=== PATIENT | female | born 1950 | race Caucasian/White ===

== ENCOUNTER 2017-05-14 20:23 | Emergency (ER) | payer MEDICARE, SELFPAY ==
[2017-05-14 20:37] VITALS: BP 106/67; PULSE 129; RESP 22; TEMP 37.4; O2SAT 97
[2017-05-14 20:39] VITALS: BP 106/67; PULSE 129; RESP 22; TEMP 37.4; O2SAT 97; BMI 41.8
[2017-05-14 20:49] LABS: UTC Influenza A Antigen Positive (Negative); UTC Influenza B Antigen Negative (Negative)
--- NOTE | 2017-05-14 21:45 | HMH.EDUTC ---
[facility] [place] [facility] Disposition Clinical Impression: Influenza A Disposition: Home, Self-Care Condition on Discharge: Good Instructions: DI for Influenza -- Adult Additional Instructions: * Start Tamiflu today if you are going to take it. Discussed risks and possible benefits. * Lots of rest * Increase fluids, water, gatorade, powerade, pedialyte if /toddler/child * Monitor Temp. Tylenol every 4 hours as needed no more then 5 times a day or 4000mg in 24 hours and/or ibuprofen every 6 hours as needed no more then 3200mg in 24 hours (as long as your primary care doctor has told you that it is ok to take both) for fever/aches/pain. ER if fever no less than 101 despite tylenol and Ibuprofen * OTC cold/flu/sinus medication is ok but pick one. Do not take multiple different ones as they have similar ingredients and you can overdose on cold medication. With yiour HTN, stick with Coricidin HbP products. * You (or your child) are contagious until no fever, aches, chills x 24 hours without medication for symptoms. Follow up IMMEDIATELY for new or worsening symptoms, improvement followed by suddenly feeling worse OR no noticeable improvement over the next 48-72 hours. 911 for difficulty breathing Prescriptions: Oseltamivir Phosphate [Tamiflu 75mg Capsule] 75 mg PO BID #10 cap Referrals: Tej Cowan MD [Primary Care Provider] - (IMMEDIATELY for new or worsening symptoms, improvement followed by suddenly feeling worse OR no noticeable improvement over the next 48-72 hours. 911 for difficulty breathing ) Time of Disposition: 21:47 Medical Decision Making Vital Signs: 05/14/17 20:37 05/14/17 20:39 05/14/17 21:48 Temperature 99.4 F 99.4 F 99.4 F Temperature Source Tympanic Oral Pulse Rate 129 H Pulse Rate [Left Brachial] 129 H 129 H Respiratory Rate 22 22 22 Blood Pressure 106/67 Blood Pressure [Left Arm] 106/67 106/67 Blood Pressure Mean [Left Arm] 80 80 Blood Pressure Source [Left Arm] Automatic Cuff Automatic Cuff Blood Pressure Position [Left Arm] Sitting Sitting 02 Sat by Pulse Oximetry 97 97 Oxygen Delivery Method Room Air Room Air - Lab Data Lab results reviewed: Yes: I reviewed the patient's lab results. Lab Results 05/14/17 20:48: Influenza Type A Ag Positive A, Influenza Type B Ag Negative - Tyler Inquiry Pt receiving controlled substance: No [facility] HPI - General Stated complaint: fever,bo,cough Time Seen by Provider: 05/14/17 21:30 Mode of Arrival: Ambulatory Source of Information: Patient Limitations: No Limitations Description of Symptoms (Recalled from Triage Doc. by RN): c/o nausea, fever, bo HEENT Symptoms (Recalled from RN notes): Yes (bo) Resp Symptoms (Recalled from RN notes): No Skin Symptoms (Recalled from RN notes): No MS Symptoms (Recalled from RN notes): No Functional Status (Recalled from RN notes): n/a - History of Present Illness Provider Complaint: c/o headache starting yesterday that has developed into cough and fever today. Denies being out of the house to be exposed to any illnesses. No treatment prior to arrival. - Related Data Previous Rx's Medication Instructions Recorded Oseltamivir Phosphate [Tamiflu 75 mg PO BID #10 cap 05/14/17 75mg Capsule] Allergies Allergy/AdvReac Type Severity Reaction Status Date / Time No Known Allergies Allergy Unverified 04/19/17 15:07 - Worker's Comp Is this a Worker's Comp case?: No [facility] History I have reviewed the patient's past medical history: Yes (allergies, ) Medical History: Reports:: Hyperlipidemia, Hypertension Denies:: Diabetes Mellitus Type 2 Other Surgeries: Yes: No Previous Surgery Amputation: No Fractures: No - *Social History Smoking Status: Never smoker Alcohol Intake: never - Psychiatric History Expresses thoughts of harming self/others: None Suicide Plan Description: No Plan ROS Obtained: Yes Systems reviewed as appropriate & no additional complaints - Constitutional Constituti
[2017-05-14 21:48] VITALS: BP 106/67; PULSE 129; RESP 22; TEMP 37.4; O2SAT 97
== END 2017-05-14 21:50 | disposition home or self-care (01) ==
PROVIDERS: Emergency Provider Nurse Practitioner Family; PCP Family Medicine
DX: J09.X2 Influenza due to identified novel influenza A virus with other respiratory manifestations (principal); I10 Essential (primary) hypertension
CPT/HCPCS: 87804; 99202

== ENCOUNTER → 2021-04-14 09:48 | Outpatient (CLI) | payer MEDICARE, SELFPAY ==
--- NOTE | 2021-04-14 09:55 | XR_ITS ---
PROCEDURE: XR CHEST 2V CLINICAL HISTORY: COUGH COMPARISON: CR CXR1 CHEST-PORTABLE from 06/03/2013 FINDINGS: The cardiomediastinal silhouette and pulmonary vascularity are within normal limits. The lungs are clear without infiltrates, suspicious nodules, or pleural effusions. Minimal atelectatic or fibrotic change in the left lung base. No acute bony findings. IMPRESSION: Minimal atelectatic or fibrotic change in the left lung base otherwise negative Dictated by: River Sheridan MD 04/14/2021 17:06 River Sheridan MD in [place] 04/14/2021 17:06
[2021-04-14 11:03] LABS: Basophils % 0.3 % (0.1-2.0); Eosinophils # 0.2 K/mm3 (0.0-0.4); Eosinophils % 1.5 % (0.1-12.0); Hematocrit 41.3 % (37.0-47.0); Hemoglobin 13.4 g/dL (12.2-16.2); Lymphocytes # 1.1 K/mm3 (0.7-4.5); Lymphocytes % 9.9 % (10-50); Mean Corpuscular HGB Conc 32.3 g/dL (31.8-35.4); Mean Corpuscular Hemoglobin 29.6 pg (27.0-31.2); Mean Corpuscular Volume 91.7 fl (81-99); Mean Platelet Volume 6.9 fl (7.4-10.4); Monocytes # 0.3 K/mm3 (0.1-1.0); Monocytes % 2.8 % (1.7-9.3); Neutrophils # 9.7 K/mm3 (1.8-7.8); Neutrophils % 85.5 % (37.0-80.0); Platelet Count 349 K/mm3 (142-424); Red Blood Count 4.51 M/mm3 (4.20-5.40); Red Cell Distribution Width 16.8 % (11.5-17.5); White Blood Count 11.4 K/mm3 (4.8-10.8)
[2021-04-14 11:09] LABS: MANUAL DIFFERENTIAL MANUAL DIFFERENTIAL (MANUAL DIFF)
[2021-04-14 11:58] LABS: NT Pro Brain Natriuretic Pep. 1970 pg/mL (0-125)
[2021-04-14 12:24] LABS: Eosinophils % 4 % (0-3); Lymphocytes % 19 % (10-50); Monocytes % 6 % (2-9); Neutrophils % 71 % (42-76); Platelet Estimate Normal; RBC Morphology Normal; Total Cells Counted 100
== END ==
PROVIDERS: PCP Nurse Practitioner Family; Visit Provider Nurse Practitioner Family
DX: R05.9 Cough, unspecified (principal); R06.09 Other forms of dyspnea
CPT/HCPCS: 36415; 71046; 83880; 85007; 85025

== ENCOUNTER 2021-04-17 09:42 | Emergency (ER) | payer MEDICARE, SELFPAY ==
--- NOTE | 2021-04-17 09:29 | ECG_ITS ---
APPROVED REPORT Exam: Resting ECG HR:114 bpm ECG Measurements Heart Rate 114 AXES MN 130 P 56 QRSd 64 QRS 17 QT 318 T 48 QTc 438 Conclusion Sinus tachycardia Left atrial abnormality Poor r wave progression Abnormal ECG Electronically signed by : Tej Smith MD 04/18/2021 06:16:16
[2021-04-17 09:53] VITALS: BP 113/62; PULSE 122; RESP 18; TEMP 36.5; O2SAT 97; BMI 43.4
[2021-04-17 09:58] LABS: POC Glucose,Bedside 82 (70-110)
--- NOTE | 2021-04-17 10:03 | CT_ITS ---
PROCEDURE: CT ANGIO CHEST PE PROTOCOL CLINCIAL INDICATION: dizzy, tachycardic, new RLE swelling high risk PE COMPARISON: US CA VENOUS DOPPLER LE RT from 04/17/2021 TECHNIQUE: IV Contrast: 70ML Isovue 370 Axial images obtained with sagittal and coronal reformats. All CT scans at the facility use one or more dose reduction, viz: automated exposure control, ma/kV adjustment per patient size (including targeted exams where dose is matched to indication, i.e. head), or iterative reconstruction technique. FINDINGS: HEART AND MEDIASTINAL STRUCTURES: The left lobe of the thyroid gland is enlarged with decreased attenuation inferiorly suggesting thyroid nodule at 1.8 cm. Nonemergent ultrasound may provide further evaluation. No evidence of pulmonary embolus, aortic aneurysm, or aortic dissection.. Coronary artery calcifications are noted. LUNGS AND PLEURAL SPACES: Unremarkable. BONY STRUCTURES: No acute bony abnormalities apparent. UPPER ABDOMEN: There is diffuse heterogeneous density of the liver with enlarged left hepatic lobe. Upper abdominal ascites is present. Low-density changes in the caudate lobe of the liver. Liver margin is somewhat irregular. Gallbladder distended and incompletely imaged. ADDITIONAL FINDINGS: No other significant abnormalities. IMPRESSION: No evidence of pulmonary embolus. Incidental 1.8 cm left thyroid nodule. Nonemergent ultrasound may provide further evaluation. Diffuse heterogeneous density of an enlarged liver with irregular margins. Heterogeneous attenuation could be related to fatty infiltration. Cannot exclude the possibility of neoplastic process. Nonemergent MRI without and with contrast could further evaluate. Distended incompletely imaged gallbladder. Dictated by: River Sheridan MD 04/17/2021 11:46 River Sheridan MD in [facility] 04/17/2021 11:46
--- NOTE | 2021-04-17 10:09 | HMH.EDGENADL ---
ED Disposition Clinical Impression: Dehydration Fall Qualifiers: Encounter type: initial encounter Qualified Code(s): W19.XXXA - Unspecified fall, initial encounter Disposition: Home, Self-Care Condition on Discharge: Good Instructions: DI for Syncope in Children (Fainting) Additional Instructions: Please continue to monitor your symptoms at home. Please note that your CT imaging showed some abnormal findings today including an incidental thyroid nodule 1.8 cm in size and liver abnormality that needs an outpatient work-up. Please see your primary care physician for further evaluation and imaging on an outpatient basis. If your condition worsens or any other concerning symptoms arise, please return immediately to the emergency department for reassessment. Referrals: Provider,Referral, [Referring] - - Critical Care Critical Care Time: No Attestation: On 04/17/21, the high probability of a clinically significant, sudden or life threatening deterioration of the following system(s) required my full and direct attention, intervention and personal management. The time I documented below is in addition to time spent performing reported procedures but includes the following listed in this critical care notation. Medical Decision Making - Medical Records Medical records reviewed: Yes: I reviewed the patient's medical records. - Tyler Inquiry Pt receiving controlled substance: No Vital Signs: 04/17/21 09:53 04/17/21 10:15 04/17/21 14:40 Temperature 97.7 F 98.4 F Temperature Source Oral Pulse Rate 107 H 106 H Pulse Rate [Bilateral Radial] 122 H Respiratory Rate 18 20 Blood Pressure 103/56 L 106/63 L Blood Pressure [Right Arm] 113/62 Blood Pressure Mean [Right Arm] 79 Blood Pressure Source [Right Arm] Automatic Cuff Blood Pressure Position [Right Arm] Supine 02 Sat by Pulse Oximetry 97 94 L Oxygen Delivery Method Room Air - Lab Data Lab results reviewed: Yes: I reviewed the patient's lab results. Lab Results 04/17/21 09:40: WBC 12.1 H, RBC 4.77, Hgb 14.4, Hct 43.0, MCV 90.1, MCH 30.1, MCHC 33.4, RDW 17.1, Plt Count 391, MPV 9.0, Neut % (Auto) 84.2 H, Lymph % (Auto) 10.7, Calhoun % (Auto) 3.5, Eos % (Auto) 0.5, Baso % (Auto) 1.0, Neut # (Auto) 10.2 H, Lymph # (Auto) 1.3, Calhoun # (Auto) 0.4, Eos # (Auto) 0.1, Baso # (Auto) 0.1 04/17/21 09:40: Sodium 130 L, Potassium 3.7, Chloride 89 L, Carbon Dioxide 32 H, Anion Gap 12.7, BUN 33 H, Creatinine 1.20 H, Estimated Creat Clear 42, Estimated GFR 44 L, Est GFR ( Amer) 54 L, Glucose 87, Calcium 8.6, Total Bilirubin 1.7 H, AST 122 H, ALT 43, Alkaline Phosphatase 299 H, Troponin I 0.02, Total Protein 6.7, Albumin 3.0 L, Globulin 3.7 H, Albumin/Globulin Ratio 0.8 L 04/17/21 09:50: POC Glucose 82 04/17/21 13:12: Troponin I 0.02 Result diagrams: 04/17/21 09:40 04/17/21 09:40 Orders (Tests/Meds): ED MEDICATIONS Discontinued Medications Generic Name Dose Route Start Last Admin Trade Name Freq PRN Reason Stop Dose Admin Lactated Ringer's 500 mls @ 999 mls/hr 04/17/21 10:15 04/17/21 10:11 Lactated Ringer's 1000 Ml Bag IV 04/17/21 10:45 999 mls/hr .Q31M ZAIDA Administration Iopamidol 100 ml 04/17/21 11:20 04/17/21 11:21 Iopamidol-370 (76%);100ml Bottle IV 04/17/21 11:21 100 ml ONCE ONE Administration Sodium Chloride 10 ml 04/17/21 11:20 04/17/21 11:21 Sodium Chloride 0.9% 10ml Vial IV 04/17/21 11:21 10 ml ONCE ONE Administration - CT Data CT Scan: Abdomen, Pelvis Time Received: 11:[address] Reviewed: Yes: I have reviewed the patient's CT results, I have viewed the radiologist's interpretation Findings Narrative: CT abd/pelvis: IMPRESSION: No evidence of pulmonary embolus. Incidental 1.8 cm left thyroid nodule. Nonemergent ultrasound may provide further evaluation. Diffuse heterogeneous density of an enlarged liver with irregular margins. Heterogeneous attenuation could be related to fat
[2021-04-17 10:15] VITALS: BP 103/56; PULSE 107; O2SAT 94
--- NOTE | 2021-04-17 10:22 | CA_ITS ---
APPROVED REPORT Right Lower Extremity Venous Study for DVT. 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 Conclusion Study suggests no evidence of DVT or SVT of the right lower extremity. Critical Notification Date: 04/17/2021 Time: 10:58 Physician Name: Dr Garcia Electronically signed by : River Sheridan MD 04/17/2021 16:58:22
[2021-04-17 10:23] LABS: Chloride 89 mmol/L (98-107); Potassium 3.7 mmoL/L (3.5-5.1); Sodium 130 mmol/L (136-145)
[2021-04-17 10:26] LABS: Alanine Aminotransferase 43 U/L (12-78); Albumin/Globulin Ratio 0.8 (1.1-1.8); Alkaline Phosphatase 299 U/L (38-126); Anion Gap 12.7 mEq/L (5-15); Aspartate Amino Transferase 122 U/L (14-36); Bilirubin,Total 1.7 mg/dl (0.2-1.3); Blood Urea Nitrogen 33 mg/dl (7-17); Calcium 8.6 mg/dl (8.4-10.2); Carbon Dioxide 32 mmol/L (22.0-30.0); Creatinine Clearance Estimated 42 mL/min (50-200); Estimated Glomerular Filt Rate 44 ml/min (>60); GFR (African American) 54 ML/MIN (>60); Globulin 3.7 g/dL (1.3-3.2); Glucose 87 mg/dl (74-100); Total Protein,Serum 6.7 g/dl (6.3-8.2)
[2021-04-17 10:28] LABS: Basophils # 0.1 K/mm3 (0-0.2); Eosinophils # 0.1 K/mm3 (0.0-0.4); Eosinophils % 0.5 % (0.1-12.0); Hemoglobin 14.4 g/dL (12.2-16.2); Lymphocytes # 1.3 K/mm3 (0.7-4.5); Lymphocytes % 10.7 % (10-50); Mean Corpuscular HGB Conc 33.4 g/dL (31.8-35.4); Mean Corpuscular Hemoglobin 30.1 pg (27.0-31.2); Mean Corpuscular Volume 90.1 fl (81-99); Monocytes # 0.4 K/mm3 (0.1-1.0); Monocytes % 3.5 % (1.7-9.3); Neutrophils # 10.2 K/mm3 (1.8-7.8); Neutrophils % 84.2 % (37.0-80.0); Platelet Count 391 K/mm3 (142-424); Red Blood Count 4.77 M/mm3 (4.20-5.40); Red Cell Distribution Width 17.1 % (11.5-17.5); White Blood Count 12.1 K/mm3 (4.8-10.8)
[2021-04-17 10:38] LABS: Troponin I 0.02 ng/ml (0.00-0.034)
--- NOTE | 2021-04-17 13:06 | PC.NURSE ---
LAB HERE DRAWING 2ND TROP
[2021-04-17 14:00] LABS: Troponin I 0.02 ng/ml (0.00-0.034)
[2021-04-17 14:40] VITALS: BP 106/63; PULSE 106; RESP 20; TEMP 36.9; O2SAT 97
== END 2021-04-17 14:45 | disposition home or self-care (01) ==
PROVIDERS: Emergency Provider Emergency Medicine; PCP Nurse Practitioner Family
DX: E86.0 Dehydration (principal); R22.41 Localized swelling, mass and lump, right lower limb; R42 Dizziness and giddiness; I10 Essential (primary) hypertension; E78.5 Hyperlipidemia, unspecified; W01.0XXA Fall on same level from slipping, tripping and stumbling without subsequent striking against object, initial encounter; Y92.019 Unspecified place in single-family (private) house as the place of occurrence of the external cause
CPT/HCPCS: 71275; 80053; 82962; 84484; 85025; 93005; 93971; 96365; 99283; Q9967

== ENCOUNTER 2021-04-23 09:56 | Inpatient (IN) | payer MEDICARE, SELFPAY ==
[2021-04-23] VITALS (46 sets, daily range): BP systolic 54–179; BP diastolic 18–142; PULSE 58–103; RESP 8–20; TEMP 36.6–37.3; O2SAT 92–100; BMI 39.7; BMI 42.9
--- NOTE | 2021-04-23 10:34 | ECG_ITS ---
APPROVED REPORT Exam: Resting ECG HR:100 bpm ECG Measurements Heart Rate 100 AXES IA 134 P 61 QRSd 66 QRS 17 QT 344 T 37 QTc 443 Conclusion Normal sinus rhythm Anterior infarct, age undetermined Abnormal ECG Electronically signed by : Tej Smith MD 04/24/2021 12:37:02
--- NOTE | 2021-04-23 10:35 | CT_ITS ---
PROCEDURE: CT HEAD/BRAIN WO CON CLINICAL INDICATION: syncope COMPARISON: No exams were available for comparison TECHNIQUE: Axial images obtained. All CT scans at the facility use one or more dose reduction, viz: automated exposure control, ma/kV adjustment per patient size (including targeted exams where dose is matched to indication, i.e. head), or iterative reconstruction technique. FINDINGS: No midline shift, mass effect, intracranial hemorrhage, hydrocephalus, or extra-axial fluid collection is evident. Mild atrophy. The calvarium has an unremarkable appearance. No mastoid effusion. No sinus air-fluid level. IMPRESSION: No acute intracranial finding Dictated by: River Sheridan MD 04/23/2021 11:19 River Sheridan MD in [place] 04/23/2021 11:19
--- NOTE | 2021-04-23 10:35 | XR_ITS ---
PROCEDURE: XR CHEST PORTABLE CLINICAL HISTORY: syncope COMPARISON: CR CXR1 CHEST-PORTABLE from 06/03/2013 CR XR CHEST 2V from 04/14/[address] ANGIO CHEST PE PROTOCOL from 04/17/2021 FINDINGS: The cardiomediastinal silhouette and pulmonary vascularity are within normal limits. The lungs are clear without infiltrates, suspicious nodules, or pleural effusions. No acute bony abnormalities. IMPRESSION: No acute findings. Dictated by: River Sheridan MD 04/23/2021 11:16 River Sheridan MD in [place] 04/23/2021 11:16
--- NOTE | 2021-04-23 10:36 | HMH.EDGENADL ---
ED Disposition Clinical Impression: Hypotension Qualifiers: Hypotension type: unspecified hypotension type Qualified Code(s): I95.9 - Hypotension, unspecified Syncope Qualifiers: Syncope type: unspecified Qualified Code(s): R55 - Syncope and collapse Disposition: Admitted As Inpatient Condition on Discharge: Critical - Critical Care Critical Care Time: Yes Attestation: On 04/23/21, the high probability of a clinically significant, sudden or life threatening deterioration of the following system(s) required my full and direct attention, intervention and personal management. The time I documented below is in addition to time spent performing reported procedures but includes the following listed in this critical care notation. Total Critical Care Time: 60 Vital system(s) involved:: Circulatory Failure My critical care processes included: Assessment & monitoring of V/S, Initial and Re-exams, Data Review/Interpretation, Coordinating Care, Medication Orders and management, Documentation Medical Decision Making - Tyler Inquiry Pt receiving controlled substance: No Vital Signs: 04/23/21 09:56 04/23/21 11:30 04/23/21 12:00 Temperature 97.8 F Temperature Source Oral Pulse Rate 61 95 H Pulse Rate [Left Radial] 103 H Respiratory Rate 18 16 19 Blood Pressure 107/57 L 108/55 L Blood Pressure [Right Arm] 94/51 L Blood Pressure Mean 67 72 Blood Pressure Mean [Right Arm] 65 Blood Pressure Source [Right Arm] Automatic Cuff Blood Pressure Position [Right Arm] Sitting 02 Sat by Pulse Oximetry 100 93 L 95 Oxygen Delivery Method Room Air 04/23/21 12:31 04/23/21 12:33 04/23/21 12:40 Temperature Temperature Source Pulse Rate 81 80 61 Pulse Rate [Left Radial] Respiratory Rate 19 18 10 L Blood Pressure 90/47 L 69/39 L 54/35 L Blood Pressure [Right Arm] Blood Pressure Mean 61 51 41 Blood Pressure Mean [Right Arm] Blood Pressure Source [Right Arm] Blood Pressure Position [Right Arm] 02 Sat by Pulse Oximetry 99 99 92 L Oxygen Delivery Method 04/23/21 12:53 04/23/21 12:57 04/23/21 12:59 Temperature Temperature Source Pulse Rate 61 60 70 Pulse Rate [Left Radial] Respiratory Rate 20 20 18 Blood Pressure 78/54 L 85/53 L 102/70 L Blood Pressure [Right Arm] Blood Pressure Mean 60 57 76 Blood Pressure Mean [Right Arm] Blood Pressure Source [Right Arm] Blood Pressure Position [Right Arm] 02 Sat by Pulse Oximetry 97 97 98 Oxygen Delivery Method 04/23/21 13:01 04/23/21 13:04 04/23/21 13:09 Temperature Temperature Source Pulse Rate 58 L 60 70 Pulse Rate [Left Radial] Respiratory Rate 20 8 L 10 L Blood Pressure 72/18 L 57/28 L 68/37 L Blood Pressure [Right Arm] Blood Pressure Mean 48 35 47 Blood Pressure Mean [Right Arm] Blood Pressure Source [Right Arm] Blood Pressure Position [Right Arm] 02 Sat by Pulse Oximetry 98 98 98 Oxygen Delivery Method 04/23/21 13:11 04/23/21 13:12 04/23/21 13:16 Temperature Temperature Source Pulse Rate 70 80 Pulse Rate [Left Radial] Respiratory Rate 12 16 Blood Pressure 86/40 L 94/41 L 110/46 L Blood Pressure [Right Arm] Blood Pressure Mean 52 52 67 Blood Pressure Mean [Right Arm] Blood Pressure Source [Right Arm] Blood Pressure Position [Right Arm] 02 Sat by Pulse Oximetry 98 96 Oxygen Delivery Method 04/23/21 13:20 04/23/21 13:27 04/23/21 13:30 Temperature Temperature Source Pulse Rate 74 70 70 Pulse Rate [Left Radial] Respiratory Rate 12 16 16 Blood Pressure 127/54 L 123/54 L 137/58 L Blood Pressure [Right Arm] Blood Pressure Mean 68 63 73 Blood Pressure Mean [Right Arm] Blood Pressure Source [Right Arm] Blood Pressure Position [Right Arm] 02 Sat by Pulse Oximetry 98 99 Oxygen Delivery Method 04/23/21 13:36 04/23/21 13:41 04/23/21 13:46 Temperature Temperature Source Pulse Rate 90 91 H 95 H Pulse Rate [Left Rad
--- NOTE | 2021-04-23 10:39 | PC.NURSE ---
pt presents to ER with office personal from cardiology , she was there for an appt during V S pt had syncope , upon arrival to ER pt starring but talking unable to stand by herself pt placed on stretcher , sister said over the past 2 weeks pt has been very weak unable to walk by herself feet swelling
--- NOTE | 2021-04-23 10:44 | PC.NURSE ---
Blood glucose 78
[2021-04-23 10:51] LABS: POC Glucose,Bedside 78 (70-110)
[2021-04-23 11:09] LABS: Magnesium 1.8 mg/dl (1.6-2.3)
[2021-04-23 11:10] LABS: Anion Gap 12.7 mEq/L (5-15); Blood Urea Nitrogen 48 mg/dl (7-17); Calcium 8.6 mg/dl (8.4-10.2); Carbon Dioxide 35 mmol/L (22.0-30.0); Chloride 89 mmol/L (98-107); Creatine Kinase 70 U/L (30-135); Creatinine Clearance Estimated 1 mL/min (50-200); Estimated Glomerular Filt Rate 26 ml/min (>60); GFR (African American) 32 ML/MIN (>60); Glucose 73 mg/dl (74-100); Potassium 3.7 mmoL/L (3.5-5.1); Sodium 133 mmol/L (136-145)
[2021-04-23 11:21] LABS: NT Pro Brain Natriuretic Pep. 4500 pg/mL (0-125); Troponin I 0.03 ng/ml (0.00-0.034)
[2021-04-23 11:33] LABS: Triiodothryronine (T3) Uptake 52 % (23.5-40.5)
[2021-04-23 11:34] LABS: Free Thyroxine Index 3.7 ug/dL (5.93-13.13); T4 (Thyroxine) 7.2 ug/dl (5.53-11.0)
[2021-04-23 11:41] LABS: Basophils # 0.1 K/mm3 (0-0.2); Basophils % 0.9 % (0.1-2.0); Eosinophils % 0.2 % (0.1-12.0); Hematocrit 42.5 % (37.0-47.0); Hemoglobin 13.5 g/dL (12.2-16.2); Lymphocytes # 1.3 K/mm3 (0.7-4.5); Lymphocytes % 10.4 % (10-50); Mean Corpuscular HGB Conc 31.7 g/dL (31.8-35.4); Mean Corpuscular Hemoglobin 29.6 pg (27.0-31.2); Mean Corpuscular Volume 93.2 fl (81-99); Mean Platelet Volume 7.8 fl (7.4-10.4); Monocytes # 0.3 K/mm3 (0.1-1.0); Monocytes % 2.2 % (1.7-9.3); Neutrophils # 10.7 K/mm3 (1.8-7.8); Neutrophils % 86.2 % (37.0-80.0); Platelet Count 307 K/mm3 (142-424); Red Blood Count 4.56 M/mm3 (4.20-5.40); White Blood Count 12.4 K/mm3 (4.8-10.8)
[2021-04-23 11:45] LABS: MANUAL DIFFERENTIAL MANUAL DIFFERENTIAL (MANUAL DIFF)
[2021-04-23 11:48] LABS: Thyroid Stimulating Hormone 3.51 uIU/mL (0.465-4.68)
[2021-04-23 12:03] LABS: Microscopic, Urine URINE MICROSCOPIC (MICROSCOPIC)
[2021-04-23 12:06] LABS: Lymphocytes % 10 % (10-50); Monocytes % 4 % (2-9); Neutrophils % 86 % (42-76); Platelet Estimate Normal; RBC Morphology Normal; Total Cells Counted 100
[2021-04-23 12:07] LABS: Appearance,Urine CLEAR (Clear); Blood, Urine TRACE-L (Negative); Color,Urine YELLOW (Yellow); Glucose,Urine (UA) Negative (Negative); Ketones,Urine Negative (Negative); Leukocyte Esterase,Urine Negative (Negative); Nitrate,Urine Negative (Negative); PH,Urine 5.5 (5.0-8.5); Protein,Urine TRACE (Negative); Specific Gravity, Urine >= 1.030 (1.005-1.030)
[2021-04-23 12:25] LABS: Bacteria,Urine Trace /lpf; Bilirubin,Urine 2+ (Negative); RBC,Urine Occasional #/hpf (0-3); Squamous Epithelial Cell,Urine Occasional #/hpf (0-5); WBC,Urine Occasional #/hpf (0-3)
--- NOTE | 2021-04-23 12:48 | PC.NURSE ---
2nd liter of fluids hung at this time, at bedside and notified pharmacy of need for levophed drip
--- NOTE | 2021-04-23 12:51 | CT_ITS ---
PROCEDURE: CT ABDOMEN PELVIS WO CON CLINICAL INDICATION: abdo pain, hypotension COMPARISON: CT CT ANGIO CHEST PE PROTOCOL from 04/17/2021 TECHNIQUE: Axial images obtained with sagittal and coronal reformats. All CT scans at the facility use one or more dose reduction, viz: automated exposure control, ma/kV adjustment per patient size (including targeted exams where dose is matched to indication, i.e. head), or iterative reconstruction technique. FINDINGS: LOWER THORAX: There are mild atelectatic changes in the left lung base. Coronary artery calcifications and mitral valve annular calcifications. ABDOMEN & PELVIS: There remains multiple ill-defined areas of decreased attenuation within the liver similar to the previous exam and may represent heterogeneous fatty infiltration. The liver margin is somewhat irregular as well. These findings are not significantly changed. Gallbladder is distended measuring 12 x 6 cm. The adrenal glands and pancreas have an unremarkable appearance. No renal or ureteral calculi or hydronephrosis. No intestinal obstruction or free air. There are multiple foci of coarse calcification in the fundus of the uterus on the right in the region of approximately 4 cm consistent with fibroid involvement. There is colonic diverticulosis but no evidence of diverticulitis. No evidence of appendicitis. There is a mild amount of abdominal ascites with fluid in the perihepatic and perisplenic region, pericolic gutters, and a small amount fluid in the pelvis. There is mild diffuse subcutaneous edema. There are degenerative changes of the lumbar spine. IMPRESSION: Multifocal areas of irregular decreased attenuation within the liver which may be due to heterogeneous fatty infiltration. Differential diagnosis would include neoplasm, infarction, or even infection. This does not appear significantly changed compared to 04/17/2021. Mild irregularity of the liver surface which may be seen with cirrhosis. Moderate gallbladder distension Mild amount of abdominal ascites. Mild diffuse subcutaneous edema 4 cm area of coarse calcification in the right aspect of the fundus of the uterus consistent with fibroid involvement Dictated by: River Sheridan MD 04/23/2021 14:40 River Sheridan MD in [place] 04/23/2021 14:40
--- NOTE | 2021-04-23 13:01 | ECG_ITS ---
APPROVED REPORT Exam: Resting ECG HR:67 bpm ECG Measurements Heart Rate 67 AXES SD 136 P 21 QRSd 66 QRS 28 QT 422 T 27 QTc 445 Conclusion Normal sinus rhythm Cannot rule out Anterior infarct, age undetermined Abnormal ECG Electronically signed by : Tej Smith MD 04/24/2021 12:36:44
[2021-04-23 13:18] LABS: Lipase 83 U/L (23-300)
[2021-04-23 13:24] LABS: Lactic Acid 2.7 mmol/L (0.7-2.1)
--- NOTE | 2021-04-23 13:49 | PC.NURSE ---
Pt became extremely hypotensive, 2nd liter of fluid was started and pt's b/p continued to drop and she started c/o side pain, feeling dizzy, and her vision was becoming fuzzy. MD came to bedside, ordered levophed drip and repeat EKG. Notified pharmacy of need for drip, and obtained EKG at this time. MD decided to order CT of abd to be obtained after pt's b/p was stable. Pt b/p continued to drop, spoke with her and her sister who both advised that in the event something happened they did not want any CPR/intubation. Myself, Rita,principal consultant and Dr. Allen at bedside during this conversation. Attempted to obtain manual b/p and was only reading 40 palp. Drip started at 2mcg/min and after 10 mins increased to 4mcg/min. After a few cycles pt b/p started to increase and her speech became clearer and said she wasn't as dizzy. Pt's pressure continued to increase, see hemodynamic monitor flowsheet for v/s and accurate timeline of events.
--- NOTE | 2021-04-23 14:14 | PC.NURSE ---
PT to CT with Gomez,RN
--- NOTE | 2021-04-23 14:45 | PC.NURSE ---
Pt started becoming hypotensive again. Drip increased to 4mcg/min
--- NOTE | 2021-04-23 14:47 | PC.NURSE ---
has been paged
[2021-04-23 14:52] LABS: Troponin I 0.02 ng/ml (0.00-0.034)
--- NOTE | 2021-04-23 15:22 | PC.NURSE ---
notified house of admission
--- NOTE | 2021-04-23 15:23 | PC.NURSE ---
called CV lab
[2021-04-23 15:45] LABS: Alanine Aminotransferase 62 U/L (12-78); Alkaline Phosphatase 277 U/L (38-126); Aspartate Amino Transferase 144 U/L (14-36); Bilirubin,Direct 0.6 mg/dl (0.0-0.4); Bilirubin,Indirect 0.8 mg/dL (0.0-0.9); Bilirubin,Total 1.4 mg/dl (0.2-1.3); Bilirubin,Unconjugated 0.8 mg/dL (0.0-1.1)
[2021-04-23 15:46] LABS: Albumin Level 2.9 g/dl (3.5-5.0); Total Protein,Serum 6.3 g/dl (6.3-8.2)
--- NOTE | 2021-04-23 15:50 | CA_ITS ---
APPROVED REPORT EXAM: Comprehensive 2D, Doppler, and color-flow Echocardiogram Skip Tender: Raven Adhikari RT(R) Ht: 5 ft 11 in Wt: 277lbs BSA: 2.42 BP: 108/55 mmHg Indications: hypotension, syncope, obesity, dehydration 2D Dimensions LVOT 2.00 cm (M/F) 1.5-2.5 LA Volume 40.50 mL LA Volume Index 16.73 mL/m2 (M/F) 16-34 M-Mode Dimensions RVDd 2.13 cm (0.9-2.6) LA Diam 4.15 cm (1.9-4.0) LVDd 5.21 cm (3.5-5.7) Ao Diam 2.52 cm (2.0-3.7) LVDs 4.45 cm (3.5-5.7) IVSd 0.80 cm (0.6-1.1) PWd 0.72 cm (0.6-1.1) EF (Teich) 30.70% FS 14.60% EDV (Teich) 130.10 mL ESV (Teich) 90.10 mL LV Diastology E Decel Time 203.00 (160-240 msec) E/A Ratio 0.7 MED E' 8.40 (< 7 cm/sec) E'/MED E' Ratio 8.48 (>14) LAT E' 8.30 (<10 cm/sec) E/LAT E' Ratio 8.58 (>14) Mitral Valve MV E Max Anant. 71.00 (40-130 cm/s) MV A Velocity 100.00 (40-130 cm/s) E/A Ratio 0.71 MV Decel. Time 203.00 (160-240 ms) MV PHT 60.00 ms Left Ventricle Left atrium is mildly enlarged, left ventricle is normal size, mild concentric left ventricular hypertrophy, visually estimated ejection fraction 55% with no regional wall motion abnormality, grade 1 diastolic dysfunction seen without tissue Doppler evidence of raise left atrial pressure. Right Ventricle Right atrium and right ventricle are mildly enlarged with normal contractility. Aortic Valve Aortic valve is minimally thickened and fibrosed, there is no aortic stenosis or aortic insufficiency. Mitral Valve Mitral valve is grossly normal, there is trace mitral regurgitation. Tricuspid Valve Tricuspid valve grossly normal, there is trace tricuspid regurgitation, tricuspid regurgitation jet velocity is inadequate for calculation of the right ventricular systolic pressure. Pulmonic Valve Pulmonic valve is poorly visualized. Great Vessels Aortic root is normal size. Inferior vena cava is poorly visualized. Pericardium No significant pericardial effusion noted. Conclusion 1. Mild biatrial enlargement, normal left ventricular size, mild concentric left ventricular hypertrophy, visually estimated ejection fraction 55% with no regional wall motion abnormality, grade 1 diastolic dysfunction seen without tissue Doppler evidence of raise left atrial pressure. 2. Mildly enlarged right ventricle with normal contractility. 3. Trace mitral and tricuspid regurgitation. 4. No significant pericardial effusion noted. Electronically signed by : Rashard Velazquez MD 04/23/2021 18:35:31
--- NOTE | 2021-04-23 15:53 | PC.NURSE ---
PT started to become hypotensive again. Drip increased to 6mcg/min. Notified . Echo at bedside
--- NOTE | 2021-04-23 16:07 | PC.NURSE ---
BP increased to 164/116, Titrated levophed down to 3 mcg/min. MD pitts
--- NOTE | 2021-04-23 16:21 | PC.NURSE ---
PT bp dropped to 91/46, titrated levophed to 5 mcg/min
--- NOTE | 2021-04-23 16:41 | PC.NURSE ---
Pt continues to have bp 84/43, levophed titrated to 4.5 mcg/min. MD pitts
--- NOTE | 2021-04-23 17:03 | PC.NURSE ---
Pt arrived to the floor at this time
[2021-04-23 17:05] LABS: Reflex Lactic Add Lactic Reflex
[2021-04-23 17:15] LABS: Troponin I 0.02 ng/ml (0.00-0.034)
[2021-04-23 17:54] LABS: Lactic Acid Follow Up (RFLX 1) 2.9 mmol/L (0.7-2.1)
[2021-04-23 18:19] LABS: Coronavirus 19, PCR Not Detected (NotDetected); Influenza A, PCR Not Detected (NotDetected); Influenza B, PCR Not Detected (NotDetected)
[2021-04-23 19:44] LABS: Reflex Lactic (2 hrs) Add Lactic Reflex
[2021-04-23 20:49] LABS: Lactic Acid Follow up (RFLX 2) 1.7 mmol/L (0.7-2.1)
[2021-04-24] VITALS (9 sets, daily range): BP systolic 96–163; BP diastolic 42–97; PULSE 62–110; RESP 17–19; TEMP 36.4–36.9; O2SAT 95–100; BMI 42.5
--- NOTE | 2021-04-24 05:16 | PC.NURSE ---
Pt A&O but is slow in answering orientation questions. PT comprehension seems to be slightly impaired. Pt appears to have very poor hygiene and states that she has a hard time bathing herself at home. Levo gtt was turned off at 2200, BP has been stable since, SBP >110. NS @ 150. Call light in reach, no concerns at this time.
--- NOTE | 2021-04-24 08:30 | P.CONPHA_ITS ---
[facility] Pharmacy VTE Monitoring - Patient Demographics Admission date: 04/24/21 Report Date: 04/24/21 Time: 08:30 Allergies/Adverse Reactions: Patient Allergies No Known Allergies Allergy (Verified 04/23/21 09:38) Height: 1.68 m Weight: 120 kg Patient Problems: Current Active Problems Hypotension (Acute) Syncope (Acute) - VTE Risk Labs: VTE Related Lab Results Hgb 13.5 g/dL (12.2-16.2) 04/23/21 10:40 Hct 42.5 % (37.0-47.0) 04/23/21 10:40 Plt Count 307 K/mm3 (142-424) 04/23/21 10:40 BUN 48 mg/dl (7-17) H 04/23/21 10:40 Creatinine 1.90 mg/dl (0.52-1.04) H 04/23/21 10:40 Estimated Creat Clear 1 mL/min (50-200) 04/23/21 10:40 Clinical Trial Participant: No - Prophylaxis VTE Prophylaxis Ordered?: Yes Types of VTE Prophylaxis: TEDS Knee High Location of Applied Device: Bilateral Lower Extremeties
--- NOTE | 2021-04-24 08:39 | HMH.HP ---
*Admission Date: 04/23/21 *Chief complaint: Syncope *History of present illness: 70-year-old female presented to the emergency department from the cardiology clinic after syncopal episode. Patient reports over the last 2 weeks she has had 2 falls at home but denies any syncope. She had been referred to cardiology due to persistent tachycardia. While preparing her for her visit in the cardiology clinic patient passed out. She was wheeled immediately over to the emergency department. Patient regained consciousness but was found to be significantly hypotensive and was given IV fluids. Later Levophed was added to maintain her blood pressure. Blood pressure remained labile in the emergency department and due to the persistent need for Levophed patient was admitted. Patient denies having any chest pain, shortness of breath, palpitations, lightheadedness. She does not actually recall passing out claiming only they told me I passed out . Apparently patient has had decline in ability to ambulate safely at home with increasing need for assistive devices. [facility] History I have reviewed the patient's past medical history: Yes Medical History: Reports:: Hyperlipidemia, Hypertension Denies:: Diabetes Mellitus Type 2 *Have you ever received a pneumonia vaccine?: No *Have you received a flu vaccine this season?: No Other Surgeries: Yes: No Previous Surgery Amputation: No Fractures: No - *Social History Smoking Status: Never smoker Alcohol Intake: never *Occupational Status:: unemployed *Travel in the last 8 weeks: None Family Hx:: Coronary Artery Disease Review of Systems - Constitutional Denies anorexia, Denies body ache(s), Denies chills, Denies lack of energy - Eyes Denies blurry vision, Denies loss of vision - ENT Denies ear discharge - *Cardiovascular Reports generalized swelling, Denies chest pain, Denies chest pain at rest, Denies chest pain with activity, Denies leg pain with activity, Denies shortness of breath, Denies shortness of breath with activity, Denies irregular heart rhythm - *Respiratory Denies change in phlegm color, Denies chest congestion, Denies cough - *Gastrointestinal Denies abdominal pain, Denies loose stools - *Genitourinary Reports abnormal vaginal bleeding, Denies abnormal periods - *Musculoskeletal Denies abnormal walking, Denies joint pain - *Neurologic Reports weakness, Denies abnormal speech, Denies localized weakness, Denies headache(s), Denies numbness Meds Home Medications Medication Instructions Recorded Confirmed Type aspirin 81 mg tablet,delayed 81 mg PO DAILY 04/23/21 04/23/21 History release cetirizine 10 mg tablet 10 mg PO DAILYP PRN 04/23/21 04/23/21 History furosemide 20 mg tablet 20 mg PO DAILY tab 04/23/21 04/23/21 History lisinopril 20 mg tablet 20 mg PO BID 04/23/21 04/23/21 History potassium chloride 10 mEq 10 meq PO DAILYP PRN 04/23/21 04/23/21 History capsule,extended release pravastatin 20 mg tablet 20 mg PO DAILY 04/23/21 04/23/21 History Allergies Allergy/AdvReac Type Severity Reaction Status Date / Time No Known Allergies Allergy Verified 04/23/21 09:38 Exam Vital signs and Labs for Last 24 Hours: Temp Pulse Resp BP Pulse Ox 98.3 F 104 H 17 146/55 H 100 04/24/21 06:00 04/24/21 06:00 04/24/21 04:00 04/24/21 06:00 04/24/21 06:00 Laboratory Results - last 24 hr 04/23/21 10:40: WBC 12.4 H, RBC 4.56, Hgb 13.5, Hct 42.5, MCV 93.2, MCH 29.6, MCHC 31.7 L, RDW 18.0 H, Plt Count 307, MPV 7.8, Neut % (Auto) 86.2 H, Lymph % (Auto) 10.4, Andrew % (Auto) 2.2, Eos % (Auto) 0.2, Baso % (Auto) 0.9, Neut # (Auto) 10.7 H, Lymph # (Auto) 1.3, Andrew # (Auto) 0.3, Eos # (Auto) 0.0, Baso # (Auto) 0.1, Total Counted 100, Neutrophils % (Manual) 86 H, Lymphocytes % (Manual) 10, Monocytes % (Manual) 4, Platelet Estimate Normal, RBC Morphology Normal 04/23/21 10:40: Sodium 133 L, Potassium 3.7, Chloride 89 L, Carbon Dioxide 35 H, Anion Gap 12.7, BUN 48 H, Cre
[2021-04-24 09:06] LABS: Basophils # 0.2 K/mm3 (0-0.2); Basophils % 1.1 % (0.1-2.0); Eosinophils # 0.1 K/mm3 (0.0-0.4); Eosinophils % 0.7 % (0.1-12.0); Hematocrit 42.2 % (37.0-47.0); Hemoglobin 13.4 g/dL (12.2-16.2); Lymphocytes # 1.7 K/mm3 (0.7-4.5); Lymphocytes % 11.5 % (10-50); Mean Corpuscular HGB Conc 31.8 g/dL (31.8-35.4); Mean Corpuscular Volume 94.4 fl (81-99); Mean Platelet Volume 8.1 fl (7.4-10.4); Monocytes # 0.4 K/mm3 (0.1-1.0); Monocytes % 2.8 % (1.7-9.3); Neutrophils # 12.1 K/mm3 (1.8-7.8); Neutrophils % 83.8 % (37.0-80.0); Platelet Count 248 K/mm3 (142-424); Red Blood Count 4.47 M/mm3 (4.20-5.40); Red Cell Distribution Width 18.3 % (11.5-17.5); White Blood Count 14.5 K/mm3 (4.8-10.8)
[2021-04-24 09:15] LABS: Chloride 95 mmol/L (98-107)
[2021-04-24 09:16] LABS: Potassium 4.2 mmoL/L (3.5-5.1); Sodium 135 mmol/L (136-145)
[2021-04-24 09:18] LABS: Alanine Aminotransferase 69 U/L (12-78); Albumin Level 2.7 g/dl (3.5-5.0); Alkaline Phosphatase 254 U/L (38-126); Aspartate Amino Transferase 204 U/L (14-36); Bilirubin,Direct 0.8 mg/dl (0.0-0.4); Bilirubin,Indirect 0.7 mg/dL (0.0-0.9); Bilirubin,Total 1.5 mg/dl (0.2-1.3); Bilirubin,Unconjugated 0.7 mg/dL (0.0-1.1); Total Protein,Serum 6.1 g/dl (6.3-8.2)
[2021-04-24 09:19] LABS: Anion Gap 14.2 mEq/L (5-15); Blood Urea Nitrogen 49 mg/dl (7-17); Calcium 7.8 mg/dl (8.4-10.2); Carbon Dioxide 30 mmol/L (22.0-30.0); Creatinine Clearance Estimated 25 mL/min (50-200); Estimated Glomerular Filt Rate 26 ml/min (>60); GFR (African American) 32 ML/MIN (>60); Glucose 75 mg/dl (74-100)
--- NOTE | 2021-04-24 09:30 | HMH.PHAINT ---
MEDICATION RECONCILIATION COMPLETE USING LIST FROM MD OFFICE VISIT.
--- NOTE | 2021-04-24 11:54 | SW/DCPLANNER ---
Addendum entered by Humera Green 04/30/21 13:33: PATIENT ACCEPTED TO [facility] ... Original Note: I spoke with patient regarding discharge plans: PT/OT has recommended placement at this time. Patient is agreeable to placement at [facility]. Patient information has been faxed to Naila w/ [facility]. I will follow up w/ Naila once patient information is reviewed.
--- NOTE | 2021-04-24 11:59 | HMH.PTEV ---
Physical Therapy Evaluation Rehab PT IP Evaluation Start: 04/24/21 08:44 Freq: ONCE Status: Active Protocol: Document 04/24/21 11:54 ANITHA (Rec: 04/24/21 11:59 ANITHA [id number]) Subjective/History History History Pt admitted as 70 yo female w/ hypotension and syncope Subjective Subjective Pt reports generalized weakness and stiffness, no pain reported Rehab PT IP Eval Objective Appearance Patient Behavior Appropriate Patient Orientation Person,Place,Time,Name,Age Difficulty following instructions none Speech Pattern Clear,Appropriate Ambulation Patient Able to Ambulate Yes Balance Ability to Arise Able, uses arms to help Sitting Balance Steady, safe Standing Balance Steady, wide stance Dynamic Sitting Balance Ability Normal Dynamic Standing Balance Ability Good Transfers Bed Transfer Ability Contact Guard/Hand Hold Chair Transfer Ability Contact Guard/Hand Hold Sit to Stand Bed Transfer Ability Contact Guard/Hand Hold Sit to Stand Chair Transfer Ability Contact Guard/Hand Hold ROM All Extremities PT ROM Status WFL MMT All Extremities PT MMT WFL Rehab PT IP prob,goals,plan Problems Date of Evaluation: 04/24/21 PT IP Problems Bed Mobility,Transfers,Gait, Balance,Self care,Safety Rehab Potential Rehab Potential Good Equipment Needs Assistive Devices Rolling / Wheeled Walker Plan PT Intervention Plan Bed Mobility,Transfers,Gait, Balance,Self care,Safety PT Plan Frequency BID Duration LOS Discharge Goals Bed Transfer Ability Supervision/Stand by Sit to Stand Chair Transfer Ability Supervision/Stand by Ambulation Assistive Device Rolling Walker Ambulation Distance (feet) 10 Discharge Plan PT Discharge Plan Pt to D/C to rehab facility or SNF to continue work on strengthening, gait, and T/F's for improved safety to return to home G -code Required No Eval Complexity Eval Charge Codes 81509 - Moderate Complexity PHYSICIAN CERTIFICATION: I certify the specified therapy services for No Chen are required, authorized, and reviewed every 30 days.
--- NOTE | 2021-04-24 12:04 | HMH.OTEV ---
OT Inpatient Evaluation Rehab OT IP Evaluation Start: 04/24/21 08:44 Freq: ONCE Status: Complete Protocol: Document 04/24/21 11:56 [facility] (Rec: 04/24/21 12:03 [facility] [id number]) Rehab OT IP Assessment Subjective History Pt oriented x3 on arrival. Pt agreeable to engage in therapy evaluation. Pt was admitted via ED on 04/23/21 due to syncope. The following information was copied from PCP's history and physical: 70-year-old female presented to the emergency department from the cardiology clinic after syncopal episode. Patient reports over the last 2 weeks she has had 2 falls at home but denies any syncope. She had been referred to cardiology due to persistent tachycardia. While preparing her for her visit in the cardiology clinic patient passed out. She was wheeled immediately over to the emergency department. Patient regained consciousness but was found to be significantly hypotensive and was given IV fluids. Later Levophed was added to maintain her blood pressure. Blood pressure remained labile in the emergency department and due to the persistent need for Levophed patient was admitted. Patient denies having any chest pain, shortness of breath, palpitations, lightheadedness. She does not actually recall passing out claiming only they told me I passed out . Apparently patient has had decline in ability to ambulate safely at home with increasing need for assistive devices. Pt has the following past medical history: hyperlipidemia, and HTN
[2021-04-25 04:00] VITALS: BP 165/91; PULSE 98; RESP 20; TEMP 36.5; O2SAT 96
[2021-04-25 05:07] VITALS: BMI 42.5
[2021-04-25 08:00] VITALS: BP 133/53; PULSE 96; RESP 18; TEMP 36.4; O2SAT 98
--- NOTE | 2021-04-25 08:09 | HMH.ACPN2 ---
Internal Medicine - PN: Subj *Date: 04/25/21 *Time: 08:09 Interval history: No complaints from patient this morning. Exam Vital signs and Labs for Last 24 Hours: Temp Pulse Resp BP Pulse Ox 97.7 F 98 H 20 165/91 H 96 04/25/21 04:00 04/25/21 04:00 04/25/21 04:00 04/25/21 04:00 04/25/21 04:00 Laboratory Results - last 24 hr 04/23/21 10:40: Cortisol 39.7 04/24/21 08:40: Total Bilirubin 1.5 H, Direct Bilirubin 0.8 H, Conjugated Bilirubin 0.0, Indirect Bilirubin 0.7, Unconjugated Bilirubin 0.7, AST 204 H D, ALT 69, Alkaline Phosphatase 254 H, Total Protein 6.1 L, Albumin 2.7 L 04/24/21 08:40: WBC 14.5 H, RBC 4.47, Hgb 13.4, Hct 42.2, MCV 94.4, MCH 30.0, MCHC 31.8, RDW 18.3 H, Plt Count 248, MPV 8.1, Neut % (Auto) 83.8 H, Lymph % (Auto) 11.5, [place] % (Auto) 2.8, Eos % (Auto) 0.7, Baso % (Auto) 1.1, Neut # (Auto) 12.1 H, Lymph # (Auto) 1.7, [place] # (Auto) 0.4, Eos # (Auto) 0.1, Baso # (Auto) 0.2 04/24/21 08:40: Sodium 135 L, Potassium 4.2, Chloride 95 L, Carbon Dioxide 30, Anion Gap 14.2, BUN 49 H, Creatinine 1.90 H, Estimated Creat Clear 25, Estimated GFR 26 L, Est GFR ( Amer) 32 L, Glucose 75, Calcium 7.8 L I & O for Last 24 hours: Intake & Output 04/22/21 04/23/21 04/24/21 04/25/21 11:59 11:59 11:59 11:59 Intake Total 0 / 0 3050 / 3050 Balance 0 / 0 3050 / 3050 Weight 277 lb 264 lb 8.875 oz 265 lb Narrative: Patient looks well. Lungs are clear. Heart has a regular rate and rhythm. Abdomen is soft and obese. Lower extremities have 2+ edema Assessment and Plan (1) Acute kidney injury Status: Acute Category: Medical Code(s): N17.9 - Acute kidney failure, unspecified (2) Tachycardia Status: Acute Category: Medical Code(s): R00.0 - Tachycardia, unspecified (3) Hypotension Status: Resolved Qualifiers: Hypotension type: unspecified hypotension type Qualified Code(s): I95.9 - Hypotension, unspecified Category: Medical Code(s): I95.9 - Hypotension, unspecified (4) Syncope Status: Acute Qualifiers: Syncope type: unspecified Qualified Code(s): R55 - Syncope and collapse Category: Medical Code(s): R55 - Syncope and collapse - Assessment and plan all Dx Assessment and Plan for all problems:: 1. BURTON improving. DC IV fluids to avoid fluid overload 2. Out of bed to chair today 3. Continue to monitor renal and liver functions. 4. Patient is agreeable to SNF and has been accepted for Tuesday.
[2021-04-25 08:13] LABS: Basophils # 0.1 K/mm3 (0-0.2); Basophils % 0.9 % (0.1-2.0); Eosinophils # 0.1 K/mm3 (0.0-0.4); Eosinophils % 0.6 % (0.1-12.0); Hematocrit 40.1 % (37.0-47.0); Hemoglobin 12.5 g/dL (12.2-16.2); Lymphocytes # 1.3 K/mm3 (0.7-4.5); Lymphocytes % 10.1 % (10-50); Mean Corpuscular HGB Conc 31.3 g/dL (31.8-35.4); Mean Corpuscular Hemoglobin 29.6 pg (27.0-31.2); Mean Corpuscular Volume 94.7 fl (81-99); Mean Platelet Volume 7.8 fl (7.4-10.4); Monocytes # 0.3 K/mm3 (0.1-1.0); Monocytes % 2.3 % (1.7-9.3); Neutrophils # 11.4 K/mm3 (1.8-7.8); Neutrophils % 86.1 % (37.0-80.0); Platelet Count 236 K/mm3 (142-424); Red Blood Count 4.23 M/mm3 (4.20-5.40); White Blood Count 13.2 K/mm3 (4.8-10.8)
[2021-04-25 08:18] LABS: Chloride 95 mmol/L (98-107); Sodium 133 mmol/L (136-145)
[2021-04-25 08:19] LABS: Potassium 3.7 mmoL/L (3.5-5.1)
[2021-04-25 08:21] LABS: Blood Urea Nitrogen 50 mg/dl (7-17); Creatinine Clearance Estimated 27 mL/min (50-200); Estimated Glomerular Filt Rate 28 ml/min (>60); GFR (African American) 34 ML/MIN (>60)
[2021-04-25 08:22] LABS: Anion Gap 12.7 mEq/L (5-15); Calcium 7.9 mg/dl (8.4-10.2); Carbon Dioxide 29 mmol/L (22.0-30.0); Glucose 83 mg/dl (74-100)
[2021-04-25 08:24] LABS: MANUAL DIFFERENTIAL MANUAL DIFFERENTIAL (MANUAL DIFF)
[2021-04-25 11:22] LABS: Lymphocytes % 12 % (10-50); Monocytes % 3 % (2-9); Neutrophils % 85 % (42-76); Platelet Estimate Normal; RBC Morphology Normal; Total Cells Counted 100
[2021-04-25 12:00] VITALS: BP 115/58; PULSE 78; RESP 16; TEMP 36.8; O2SAT 96
[2021-04-25 16:00] VITALS: BP 109/77; PULSE 78; RESP 18; TEMP 36.4; O2SAT 94
--- NOTE | 2021-04-25 18:22 | PC.NURSE ---
PT IS RESTING IN BED. TOLERATED SITTING UP IN THE CHAIR FOR A FEW HOURS THIS SHIFT. EATING AND DRINKING WELL. LUNG SOUNDS CLEAR. ABDOMEN SOFT/NON TENDER WITH ACTIVE BOWEL SOUNDS. PT AMBULATES TO THE BATHROOM WITH WALKER AND ASSIST X1. VSS. SCATTERED BRUISING NOTED TO BUE. 3+ PITTING EDEMA NOTED TO BLE. WILL CONTINUE TO MONITOR.
[2021-04-25 20:00] VITALS: BP 110/65; PULSE 75; RESP 19; TEMP 37.3; O2SAT 92
--- NOTE | 2021-04-25 22:31 | PC.NURSE ---
No care needed
[2021-04-26 04:00] VITALS: BP 115/58; PULSE 71; RESP 18; TEMP 37.2; O2SAT 93
--- NOTE | 2021-04-26 04:40 | PC.NURSE ---
Pt is A/O x3. Patient rested well thus far in shift. Pt voiced no c/o of pain, N/V. Lungs sound CTA. No concerns at this time.
[2021-04-26 06:36] LABS: Basophils % 0.3 % (0.1-2.0); Eosinophils # 0.2 K/mm3 (0.0-0.4); Eosinophils % 1.6 % (0.1-12.0); Hematocrit 39.1 % (37.0-47.0); Hemoglobin 12.7 g/dL (12.2-16.2); Lymphocytes # 1.4 K/mm3 (0.7-4.5); Lymphocytes % 10.2 % (10-50); Mean Corpuscular HGB Conc 32.5 g/dL (31.8-35.4); Mean Corpuscular Hemoglobin 30.2 pg (27.0-31.2); Mean Corpuscular Volume 93.2 fl (81-99); Mean Platelet Volume 9.2 fl (7.4-10.4); Monocytes # 0.3 K/mm3 (0.1-1.0); Monocytes % 2.5 % (1.7-9.3); Neutrophils # 11.6 K/mm3 (1.8-7.8); Neutrophils % 85.3 % (37.0-80.0); Platelet Count 178 K/mm3 (142-424); Red Cell Distribution Width 18.2 % (11.5-17.5); White Blood Count 13.6 K/mm3 (4.8-10.8)
[2021-04-26 06:39] LABS: MANUAL DIFFERENTIAL MANUAL DIFFERENTIAL (MANUAL DIFF)
[2021-04-26 06:47] LABS: Chloride 95 mmol/L (98-107)
[2021-04-26 06:48] LABS: Potassium 3.8 mmoL/L (3.5-5.1); Sodium 132 mmol/L (136-145)
[2021-04-26 06:50] LABS: Blood Urea Nitrogen 53 mg/dl (7-17); Creatinine Clearance Estimated 32 mL/min (50-200); Estimated Glomerular Filt Rate 34 ml/min (>60); GFR (African American) 41 ML/MIN (>60)
[2021-04-26 06:51] LABS: Anion Gap 14.8 mEq/L (5-15); Calcium 7.4 mg/dl (8.4-10.2); Carbon Dioxide 26 mmol/L (22.0-30.0); Glucose 73 mg/dl (74-100)
[2021-04-26 07:04] LABS: Alanine Aminotransferase 70 U/L (12-78); Alkaline Phosphatase 278 U/L (38-126); Aspartate Amino Transferase 142 U/L (14-36); Bilirubin,Direct 0.9 mg/dl (0.0-0.4); Bilirubin,Total 1.9 mg/dl (0.2-1.3)
[2021-04-26 07:05] LABS: Albumin Level 2.2 g/dl (3.5-5.0); Total Protein,Serum 5.2 g/dl (6.3-8.2)
[2021-04-26 07:24] LABS: Eosinophils % 1 % (0-3); Lymphocytes % 11 % (10-50); Monocytes % 3 % (2-9); Neutrophils % 85 % (42-76); Nucleated Red Blood Cells 2; Platelet Estimate Normal; Total Cells Counted 100
[2021-04-26 07:43] LABS: RBC Morphology Normal
[2021-04-26 08:00] VITALS: BP 88/44; PULSE 84; RESP 16; TEMP 36.5; O2SAT 97
--- NOTE | 2021-04-26 08:09 | HMH.ACPN2 ---
Internal Medicine - PN: Subj *Date: 04/26/21 *Time: 08:09 Interval history: Patient is without complaints. She was out of bed to chair yesterday. She is ambulating with a walker. She admits she feels unsteady on her feet Exam Vital signs and Labs for Last 24 Hours: Temp Pulse Resp BP Pulse Ox 98.9 F 71 18 115/58 L 93 L 04/26/21 04:00 04/26/21 04:00 04/26/21 04:00 04/26/21 04:00 04/26/21 04:00 Laboratory Results - last 24 hr 04/25/21 07:38: WBC 13.2 H, RBC 4.23, Hgb 12.5, Hct 40.1, MCV 94.7, MCH 29.6, MCHC 31.3 L, RDW 18.0 H, Plt Count 236, MPV 7.8, Neut % (Auto) 86.1 H, Lymph % (Auto) 10.1, [place] % (Auto) 2.3, Eos % (Auto) 0.6, Baso % (Auto) 0.9, Neut # (Auto) 11.4 H, Lymph # (Auto) 1.3, [place] # (Auto) 0.3, Eos # (Auto) 0.1, Baso # (Auto) 0.1, Total Counted 100, Neutrophils % (Manual) 85 H, Lymphocytes % (Manual) 12, Monocytes % (Manual) 3, Platelet Estimate Normal, RBC Morphology Normal 04/25/21 07:38: Sodium 133 L, Potassium 3.7, Chloride 95 L, Carbon Dioxide 29, Anion Gap 12.7, BUN 50 H, Creatinine 1.80 H, Estimated Creat Clear 27, Estimated GFR 28 L, Est GFR ( Amer) 34 L, Glucose 83, Calcium 7.9 L 04/26/21 05:46: WBC 13.6 H, RBC 4.20, Hgb 12.7, Hct 39.1, MCV 93.2, MCH 30.2, MCHC 32.5, RDW 18.2 H, Plt Count 178, MPV 9.2, Neut % (Auto) 85.3 H, Lymph % (Auto) 10.2, [place] % (Auto) 2.5, Eos % (Auto) 1.6, Baso % (Auto) 0.3, Neut # (Auto) 11.6 H, Lymph # (Auto) 1.4, [place] # (Auto) 0.3, Eos # (Auto) 0.2, Baso # (Auto) 0.0, Total Counted 100, Neutrophils % (Manual) 85 H, Lymphocytes % (Manual) 11, Monocytes % (Manual) 3, Eosinophils % (Manual) 1, Nucleated RBCs 2, Platelet Estimate Normal, RBC Morphology Normal 04/26/21 05:46: Sodium 132 L, Potassium 3.8, Chloride 95 L, Carbon Dioxide 26, Anion Gap 14.8, BUN 53 H, Creatinine 1.50 H, Estimated Creat Clear 32, Estimated GFR 34 L, Est GFR ( Amer) 41 L D, Glucose 73 L, Calcium 7.4 L 04/26/21 05:46: Total Bilirubin 1.9 H, Direct Bilirubin 0.9 H, Conjugated Bilirubin 0.0, Indirect Bilirubin 1.0 H, Unconjugated Bilirubin 1.0, AST 142 H D, ALT 70, Alkaline Phosphatase 278 H, Total Protein 5.2 L, Albumin 2.2 L I & O for Last 24 hours: Intake & Output 04/23/21 04/24/21 04/25/21 04/26/21 11:59 11:59 11:59 11:59 Intake Total 0 / 0 3530 / 3530 960 / 960 Balance 0 / 0 3530 / 3530 960 / 960 Weight 277 lb 264 lb 8.875 oz 265 lb Microbiology Reports for the Last 24 Hours: Microbiology 04/23/21 12:55 Blood Blood Culture - Preliminary NO GROWTH AFTER 48 HOURS 04/23/21 12:55 Blood Blood Culture - Preliminary NO GROWTH AFTER 48 HOURS - Constitutional no acute distress - *Routine Respiratory Exam Present: CTA bilaterally - *Routine Cardiovascular Exam Present: RRR - *Routine Abdominal Exam Present: soft, normoactive bowel sounds. Absent: tenderness Assessment and Plan (1) Acute kidney injury Status: Acute Category: Medical Code(s): N17.9 - Acute kidney failure, unspecified (2) Tachycardia Status: Acute Category: Medical Code(s): R00.0 - Tachycardia, unspecified (3) Hypotension Status: Resolved Qualifiers: Hypotension type: unspecified hypotension type Qualified Code(s): I95.9 - Hypotension, unspecified Category: Medical Code(s): I95.9 - Hypotension, unspecified (4) Syncope Status: Acute Qualifiers: Syncope type: unspecified Qualified Code(s): R55 - Syncope and collapse Category: Medical Code(s): R55 - Syncope and collapse - Assessment and plan all Dx Assessment and Plan for all problems:: 1. Blood pressure stabilizing. Continue metoprolol 25 mg twice daily 2. Continue PT and anticipate discharge to SNF tomorrow 3. BURTON is improving. Continue to hold diuretics.
[2021-04-26 16:00] VITALS: BP 99/75; PULSE 75; RESP 16; TEMP 36.9; O2SAT 95
--- NOTE | 2021-04-26 18:56 | PC.NURSE ---
Pt has been pleasant and cooperative this shift. A&O X4. No complaints of pain or SOA. Pt is on room air with sats. >90%. Lungs CTA. 2+ pitting edema noted to BLE. Skin is C/D/I. Pt ambulates with a rolling walker and assistance X1. Urine is clear and yellow. No BM thus far this shift. Appetite is good and pt eats about 75% of every meal. 20 G peripheral IV in the LT AC is patent and SL. 18 G peripheral IV in the RT AC is patent and SL. B/P has been low this shift. Other VSS. Call light within reach. Will continue to monitor.
[2021-04-26 20:00] VITALS: BP 91/40; PULSE 86; RESP 18; TEMP 36.6; O2SAT 97
[2021-04-27] VITALS: BP 117/40; PULSE 89; RESP 16; TEMP 36.3; O2SAT 98
[2021-04-27 04:00] VITALS: BP 94/36; PULSE 99; RESP 14; TEMP 36.6; O2SAT 95
[2021-04-27 05:08] VITALS: BMI 42.1
--- NOTE | 2021-04-27 06:27 | PC.NURSE ---
Pt slept at intervals this shift. No complaints stated. BP has been soft this shift. Metoprolol was held at 2100. Other VSS. No other concerns. Will continue to monitor.
[2021-04-27 06:37] LABS: Basophils # 0.2 K/mm3 (0-0.2); Basophils % 1.3 % (0.1-2.0); Eosinophils # 0.3 K/mm3 (0.0-0.4); Eosinophils % 1.8 % (0.1-12.0); Hematocrit 49.9 % (37.0-47.0); Lymphocytes # 1.5 K/mm3 (0.7-4.5); Lymphocytes % 9.6 % (10-50); Mean Corpuscular HGB Conc 32.1 g/dL (31.8-35.4); Mean Corpuscular Hemoglobin 29.7 pg (27.0-31.2); Mean Corpuscular Volume 92.5 fl (81-99); Mean Platelet Volume 9.3 fl (7.4-10.4); Monocytes # 0.4 K/mm3 (0.1-1.0); Monocytes % 2.5 % (1.7-9.3); Neutrophils # 12.7 K/mm3 (1.8-7.8); Neutrophils % 84.7 % (37.0-80.0); Platelet Count 162 K/mm3 (142-424); Red Cell Distribution Width 18.1 % (11.5-17.5); White Blood Count 14.9 K/mm3 (4.8-10.8)
[2021-04-27 06:54] LABS: Chloride 96 mmol/L (98-107); Sodium 132 mmol/L (136-145)
[2021-04-27 06:55] LABS: Potassium 4.6 mmoL/L (3.5-5.1)
[2021-04-27 06:57] LABS: Blood Urea Nitrogen 58 mg/dl (7-17); Creatinine Clearance Estimated 27 mL/min (50-200); Estimated Glomerular Filt Rate 28 ml/min (>60); GFR (African American) 34 ML/MIN (>60)
[2021-04-27 06:58] LABS: Anion Gap 17.6 mEq/L (5-15); Calcium 7.7 mg/dl (8.4-10.2); Carbon Dioxide 23 mmol/L (22.0-30.0); Cholesterol 84 mg/dl (140-200); Glucose 60 mg/dl (74-100); HDL Cholesterol 14 mg/dl (40-60); Triglycerides 126 mg/dl (30-150); VLDL Cholesterol 25 mg/dL (0-40)
[2021-04-27 07:10] LABS: Direct LDL Cholesterol < 30.00 mg/dL (100-129)
--- NOTE | 2021-04-27 07:31 | HMH.DCSUM ---
General - General Admission date:: 04/23/21 Discharge date: 04/27/21 HPI HPI: 70-year-old female presented to the emergency department from the cardiology clinic after syncopal episode. Patient reports over the last 2 weeks she has had 2 falls at home but denies any syncope. She had been referred to cardiology due to persistent tachycardia. While preparing her for her visit in the cardiology clinic patient passed out. She was wheeled immediately over to the emergency department. Patient regained consciousness but was found to be significantly hypotensive and was given IV fluids. Later Levophed was added to maintain her blood pressure. Blood pressure remained labile in the emergency department and due to the persistent need for Levophed patient was admitted. Patient denies having any chest pain, shortness of breath, palpitations, lightheadedness. She does not actually recall passing out claiming only they told me I passed out . Apparently patient has had decline in ability to ambulate safely at home with increasing need for assistive devices. Hospital Course Hospital Course: Patient was admitted to telemetry. She had no arrhythmias. She did have sinus tachycardia. Hypotension did respond to IV fluids. Patient's antihypertensives were held in favor of starting metoprolol tartrate at low dose due to patient's mild tachycardia. Patient's blood pressure remained controlled and even on the low end. Patient will continue metoprolol 12-1/2 mg twice daily patient was able to ambulate without lightheadedness although did report unsteadiness on her feet which had been present prior to admission. PT and OT eval's occurred and SNF was recommended. Patient was discharged to [facility] on April 27. Patient had no acute kidney injury identified on admission. Diuretics and JAQUELIN inhibitors were held. Patient's creatinine peaked at 1.9 with baseline of 0.9. Patient's creatinine did fluctuate although she did have good urine output. Creatinine the day of discharge was 1.8. Patient was discharged to [facility] on April 27. Patient will need [facility] on April 30. Patient's white count remained elevated during hospitalization. Urine was negative for infection and chest x-ray did not reveal any pneumonia nor did patient have any infectious symptoms such as fever or chills. Objective Vital signs: Temp Pulse Resp BP Pulse Ox 97.8 F 99 H 14 94/36 L 95 04/27/21 04:00 04/27/21 04:00 04/27/21 04:00 04/27/21 04:00 04/27/21 04:00 no acute distress - *Routine Respiratory Exam Present: CTA bilaterally - *Routine Cardiovascular Exam Present: RRR - *Routine Extremities Exam Present: edema Results Labs on day of discharge: Labs from last 24 hours 04/27/21 04/27/21 04/26/21 06:05 06:05 05:46 WBC 14.9 H RBC 5.40 D Hgb 16.0 Hct 49.9 H MCV 92.5 MCH 29.7 MCHC 32.1 RDW 18.1 H Plt Count 162 MPV 9.3 Neut % (Auto) 84.7 H Lymph % (Auto) 9.6 L [place] % (Auto) 2.5 Eos % (Auto) 1.8 Baso % (Auto) 1.3 Neut # (Auto) 12.7 H Lymph # (Auto) 1.5 [place] # (Auto) 0.4 Eos # (Auto) 0.3 Baso # (Auto) 0.2 Total Counted 100 Neutrophils % (Manual) 85 H Lymphocytes % (Manual) 11 Monocytes % (Manual) 3 Eosinophils % (Manual) 1 Nucleated RBCs 2 Platelet Estimate Normal RBC Morphology Normal Sodium 132 L Potassium 4.6 D Chloride 96 L Carbon Dioxide 23 Anion Gap 17.6 H BUN 58 H Creatinine 1.80 H Estimated Creat Clear 27 Estimated GFR 28 L Est GFR ( Amer) 34 L Glucose 60 L Calcium 7.7 L Triglycerides 126 Cholesterol 84 L LDL Cholesterol Direct < 30.00 L VLDL Cholesterol 25 HDL Cholesterol 14 L Cholesterol/HDL Ratio 6.0 H Preliminary micro results at discharge 04/23/21 12:55 Blood Culture - Preliminary Blood NO GROWTH
[2021-04-27 08:00] VITALS: BP 148/49; PULSE 108; RESP 18; TEMP 36.6; O2SAT 94
[2021-04-27 08:55] LABS: Coronavirus 19, PCR Not Detected (NotDetected); Influenza A, PCR Not Detected (NotDetected); Influenza B, PCR Not Detected (NotDetected)
--- NOTE | 2021-04-27 11:34 | PC.NURSE ---
1119 attempted to call report to [facility]. Staff states that they have not received the discharge summary at this time, so they will not take report. 1130 dc summary faxed by
[2021-04-27 12:00] VITALS: BP 109/47; PULSE 108; RESP 18; TEMP 36.6; O2SAT 96
--- NOTE | 2021-04-27 13:14 | PC.NURSE ---
called report to [facility] at 1155. spoke with pt sister about taking pt to . sister was eventually agreeable. when trying to get the pt up to change her undergarments, pt was a max assist times 3. pt requires transfer by EMS r/t safety of pt and staff involved.
== END 2021-04-27 14:19 | DRG 684 ==
LOC: ER 15:25 → 2ND 15:38
PROVIDERS: Admitting Provider Family Medicine; Emergency Provider Emergency Medicine; PCP Nurse Practitioner Family; Visit Provider Family Medicine
DX: N17.9 Acute kidney failure, unspecified (principal); E78.5 Hyperlipidemia, unspecified; I10 Essential (primary) hypertension; I95.9 Hypotension, unspecified; Z20.822 Contact with and (suspected) exposure to COVID-19
CPT/HCPCS: 36415; 70450; 71045; 74176; 80048; 80061; 80076; 81001; 82533; 82550; 82962; 83605; 83690; 83735; 83880; 84436; 84443; 84479; 84484; 85007; 85025; 87040; 93005; 93306; 96365; 96366; 96367; 96375; 97110; 97162; 97166; 99285; C9803; U0003; U0005

== ENCOUNTER 2021-04-30 09:39 | Inpatient (IN) | payer MEDICARE, SELFPAY ==
[2021-04-30] VITALS (9 sets, daily range): BP systolic 76–125; BP diastolic 43–89; PULSE 76–99; RESP 12–22; TEMP 36.5–36.8; O2SAT 90–99; BMI 45.7; BMI 46.6
--- NOTE | 2021-04-30 10:05 | XR_ITS ---
PROCEDURE: XR CHEST PORTABLE CLINICAL HISTORY: weakness COMPARISON: CR CXR1 CHEST-PORTABLE from 06/03/2013 CR XR CHEST 2V from 04/14/[address] ANGIO CHEST PE PROTOCOL from 04/17/2021 CR XR CHEST PORTABLE from 04/23/2021 FINDINGS: The cardiomediastinal silhouette and pulmonary vascularity are within normal limits. There is patchy density in the left lung base suggesting an area of atelectasis or patchy infiltrate with small effusion. No acute bony abnormalities. IMPRESSION: Minimal left basilar atelectasis or infiltrate with small effusion Dictated by: River Sheridan MD 04/30/2021 11:04 River Sheridan MD in [place] 04/30/2021 11:04
[2021-04-30 10:33] LABS: Basophils # 0.1 K/mm3 (0-0.2); Basophils % 0.6 % (0.1-2.0); Eosinophils # 0.1 K/mm3 (0.0-0.4); Eosinophils % 0.9 % (0.1-12.0); Hematocrit 44.5 % (37.0-47.0); Hemoglobin 14.2 g/dL (12.2-16.2); Lymphocytes # 1.8 K/mm3 (0.7-4.5); Lymphocytes % 13.9 % (10-50); Mean Platelet Volume 8.9 fl (7.4-10.4); Monocytes # 0.3 K/mm3 (0.1-1.0); Monocytes % 2.6 % (1.7-9.3); Neutrophils # 10.6 K/mm3 (1.8-7.8); Platelet Count 188 K/mm3 (142-424); Red Blood Count 4.73 M/mm3 (4.20-5.40); Red Cell Distribution Width 18.6 % (11.5-17.5); White Blood Count 12.9 K/mm3 (4.8-10.8)
[2021-04-30 10:34] LABS: Chloride 95 mmol/L (98-107); Sodium 134 mmol/L (136-145)
[2021-04-30 10:35] LABS: Potassium 4.1 mmoL/L (3.5-5.1)
[2021-04-30 10:37] LABS: Alanine Aminotransferase 88 U/L (12-78); Albumin Level 2.3 g/dl (3.5-5.0); Albumin/Globulin Ratio 0.7 (1.1-1.8); Alkaline Phosphatase 301 U/L (38-126); Anion Gap 15.1 mEq/L (5-15); Aspartate Amino Transferase 143 U/L (14-36); Bilirubin,Total 1.7 mg/dl (0.2-1.3); Blood Urea Nitrogen 77 mg/dl (7-17); Carbon Dioxide 28 mmol/L (22.0-30.0); Creatinine Clearance Estimated 16 mL/min (50-200); Estimated Glomerular Filt Rate 15 ml/min (>60); GFR (African American) 18 ML/MIN (>60); Globulin 3.2 g/dL (1.3-3.2); Total Protein,Serum 5.5 g/dl (6.3-8.2)
[2021-04-30 10:38] LABS: Calcium 7.4 mg/dl (8.4-10.2); Glucose 54 mg/dl (74-100)
[2021-04-30 10:41] LABS: Lactic Acid 2.3 mmol/L (0.7-2.1)
[2021-04-30 10:49] LABS: Troponin I 0.04 ng/ml (0.00-0.034)
--- NOTE | 2021-04-30 11:27 | ECG_ITS ---
APPROVED REPORT Exam: Resting ECG HR:87 bpm ECG Measurements Heart Rate 87 AXES DE 126 P 55 QRSd 58 QRS 33 QT 372 T 38 QTc 447 Conclusion Sinus rhythm with fusion complexes Low voltage QRS Cannot rule out Anterior infarct, age undetermined Abnormal ECG Electronically signed by : Tej Smith MD 05/01/2021 09:56:28
--- NOTE | 2021-04-30 11:33 | PC.NURSE ---
Dr Jefferson at bedside
--- NOTE | 2021-04-30 11:40 | HMH.EDGENADL ---
ED Disposition Clinical Impression: BURTON (acute kidney injury), Dehydration, Multiple organ failure Disposition: Admitted As Inpatient Condition on Discharge: Good Time of Disposition: 10:20 - Critical Care Critical Care Time: Yes Attestation: On 04/30/21, the high probability of a clinically significant, sudden or life threatening deterioration of the following system(s) required my full and direct attention, intervention and personal management. The time I documented below is in addition to time spent performing reported procedures but includes the following listed in this critical care notation. Total Critical Care Time: 30 Vital system(s) involved:: Shock (Septic) My critical care processes included: Assessment & monitoring of V/S, Initial and Re-exams, Data Review/Interpretation, Coordinating Care, Medication Orders and management, Documentation Medical Decision Making - Medical Records Medical records reviewed: Yes: I reviewed the patient's medical records. - [place] Inquiry Pt receiving controlled substance: No Vital Signs: 04/30/21 09:39 04/30/21 11:15 04/30/21 11:30 Temperature 97.7 F Temperature Source Oral Pulse Rate 76 Pulse Rate [Left Radial] 79 Respiratory Rate 17 12 18 Blood Pressure 86/46 L 93/55 L Blood Pressure [Left Arm] 76/43 L Blood Pressure Mean [Left Arm] 54 Blood Pressure Source [Left Arm] Automatic Cuff Blood Pressure Position [Left Arm] Left Lateral 02 Sat by Pulse Oximetry 90 L 99 Oxygen Delivery Method Room Air - Lab Data Lab results reviewed: Yes: I reviewed the patient's lab results. Lab Results 04/30/21 10:09: WBC 12.9 H, RBC 4.73, Hgb 14.2, Hct 44.5, MCV 94.0, MCH 30.0, MCHC 32.0, RDW 18.6 H, Plt Count 188, MPV 8.9, Neut % (Auto) 82.0 H, Lymph % (Auto) 13.9, [place] % (Auto) 2.6, Eos % (Auto) 0.9, Baso % (Auto) 0.6, Neut # (Auto) 10.6 H, Lymph # (Auto) 1.8, [place] # (Auto) 0.3, Eos # (Auto) 0.1, Baso # (Auto) 0.1 04/30/21 10:09: Sodium 134 L, Potassium 4.1, Chloride 95 L, Carbon Dioxide 28, Anion Gap 15.1 H, BUN 77 H, Creatinine 3.10 H, Estimated Creat Clear 16, Estimated GFR 15 L*, Est GFR ( Amer) 18 L*, Glucose 54 L, Calcium 7.4 L, Total Bilirubin 1.7 H, AST 143 H, ALT 88 H, Alkaline Phosphatase 301 H, Troponin I 0.04 H, Total Protein 5.5 L, Albumin 2.3 L, Globulin 3.2, Albumin/Globulin Ratio 0.7 L 04/30/21 10:09: Lactate 2.3 H 04/30/21 14:00: SARS-CoV-2 (PCR) Not detected, Influenza A Untype (PCR) Not detected, Influenza Type B (PCR) Not detected Result diagrams: 04/30/21 10:09 04/30/21 10:09 Orders (Tests/Meds): ED MEDICATIONS Generic Name Dose Route Start Last Admin Trade Name Freq PRN Reason Stop Dose Admin Acetaminophen 650 mg 04/30/21 14:30 Acetaminophen 325mg Tab PO 05/30/21 14:29 Q4HP PRN Fever or Mild Pain Sodium Chloride 1,000 mls @ 125 mls/hr 04/30/21 14:30 04/30/21 18:14 Sod Chlor 0.9% 1000ml Bag IV 05/30/21 14:29 Not Given .Q8H ZAIDA Azithromycin 500 mg/ Sodium 250 mls @ 250 mls/hr 04/30/21 17:00 04/30/21 17:07 Chloride IV 05/14/21 16:59 250 mls/hr Q24H ZAIDA Administration Ceftriaxone Sodium 1 gm/ 50 mls @ 100 mls/hr 04/30/21 18:00 04/30/21 17:11 Sodium Chloride IV 05/14/21 17:59 100 mls/hr Q24H ZAIDA Administration Potassium Chloride/Dextrose/Sod Cl 1,000 mls @ 150 mls/hr 04/30/21 18:15 04/30/21 18:38 Kcl 20meq In D5w-0.45% Nacl IV 05/30/21 18:14 150 mls/hr .Q6H40M ZAIDA Administration Ondansetron HCl 4 mg 04/30/21 14:30 Ondansetron 4mg/2ml Vial IV 05/30/21 14:29 Q8HP PRN Nausea Discontinued Medications Generic Name Dose Route Start Last Admin Trade Name Freq PRN Reason Stop Dose Admin Dextrose 50 ml 04/30/21 18:15 04/30/21 17:15 Dextrose 50% 50ml Syringe (Crash Cart) IV 04/30/21 18:16 50 ml ONCE ONE Administration Sodium Chloride 1,000 mls @ 999 mls/hr 04/30/21 10:26 04/30/21 10:31 Sod Chlor 0.9% 1000ml Bag IV 04/30/21 11:26 999 m
--- NOTE | 2021-04-30 12:06 | PC.NURSE ---
Care management called for admission of patient,
--- NOTE | 2021-04-30 14:05 | PC.NURSE ---
Called report to floor RN
[2021-04-30 14:10] LABS: Coronavirus 19, PCR Not Detected (NotDetected); Influenza A, PCR Not Detected (NotDetected); Influenza B, PCR Not Detected (NotDetected)
[2021-04-30 14:28] LABS: Reflex Lactic Add Lactic Reflex
--- NOTE | 2021-04-30 14:29 | PC.NURSE ---
pt arrived to the floor at this time
--- NOTE | 2021-04-30 15:36 | HMH.PHAVTE ---
[facility] Pharmacy VTE Monitoring - Patient Demographics Admission date: 04/30/21 Report Date: 04/30/21 Time: 15:36 Allergies/Adverse Reactions: Patient Allergies No Known Allergies Allergy (Verified 04/23/21 09:38) Height: 1.68 m Weight: 131.117 kg Patient Problems: Current Active Problems Dehydration (Acute) BURTON (acute kidney injury) (Acute) Multiple organ failure (Acute) - VTE Risk Labs: VTE Related Lab Results Hgb 14.2 g/dL (12.2-16.2) 04/30/21 10:09 Hct 44.5 % (37.0-47.0) 04/30/21 10:09 Plt Count 188 K/mm3 (142-424) 04/30/21 10:09 BUN 77 mg/dl (7-17) H 04/30/21 10:09 Creatinine 3.10 mg/dl (0.52-1.04) H 04/30/21 10:09 Estimated Creat Clear 16 mL/min (50-200) 04/30/21 10:09 VTE Score: 4 VTE Risk Level: Low Risk - Prophylaxis VTE Prophylaxis Ordered?: Yes Types of VTE Prophylaxis: TEDS Knee High Location of Applied Device: Bilateral Lower Extremeties
--- NOTE | 2021-04-30 16:21 | PC.NURSE ---
PT IS RESTING IN BED ON HER LEFT SIDE AT THIS TIME. PT IS ABLE TO ANSWER QUESTIONS HOWEVER IS DELAYED WITH HER RESPONSES. PT STATED HER NAME/ AND SHE KNOWS SHE IS IN THE HOSPITAL BUT IS UNAWARE OF THE HOSPITAL'S NAME. PT STATES [facility] L[facility] AT [facility] BUT COULD NOT REMEMBER THE NAME OF THE [facility]. PT STATED HER SISTER BRANDON DINH WAS TO MAKE MEDICAL DECISIONS FOR PT IF SHE WAS UNABLE. CODE STATUS WAS VERIFIED WITH PT AND PT'S SISTER OVER THE PHONE. PT AND PT'S SISTER BOTH STATED PT WANTED TO BE A DNR AND SHE HAS VOICED THIS MANY TIMES TO THE SISTER (BRANDON MAHARAJ). PHYSICIAN E LEARNING DEVELOPER WAS NOTIFIED ABOUT PT REFUSING LAB WORK. LUNG SOUNDS DIMINISHED. ABDOMEN SOFT/NON TENDER WITH ACTIVE BOWEL SOUNDS. 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 PT HAS BEEN ABLE TO FOLLOW COMMANDS SINCE ARRIVING TO THE FLOOR. 3+ PITTING EDEMA NOTED TO BLE. WILL CONTINUE TO MONITOR.
[2021-04-30 17:42] LABS: Glucose,Random 58 mg/dL (74-100)
[2021-04-30 17:53] LABS: POC Glucose,Bedside 74 (70-110)
[2021-04-30 20:20] LABS: POC Glucose,Bedside 173 (70-110)
[2021-05-01] VITALS (7 sets, daily range): BP systolic 81–114; BP diastolic 33–52; PULSE 84–101; RESP 14–24; TEMP 36.1–36.4; O2SAT 94–100; BMI 47.5
[2021-05-01 03:02] LABS: POC Glucose,Bedside 84 (70-110)
[2021-05-01 08:08] LABS: Microscopic, Urine URINE MICROSCOPIC (MICROSCOPIC)
--- NOTE | 2021-05-01 08:11 | HMH.HP ---
*Admission Date: 04/30/21 *Chief complaint: Weakness *History of present illness: 70-year-old female sent to the emergency department from the [facility] where she had been rehabilitating due to profound weakness and hypotension. Patient was found to be hypotensive here with new acute kidney injury and hypoglycemia. Patient was confused in the emergency department. Additional findings included suspected left lower lobe pneumonia. Patient was admitted per pneumonia protocol, placed on Rocephin and azithromycin, and started on IV fluids to maintain blood pressure. Patient was in this facility approximately 1 week ago for similar symptoms with mild or acute kidney injury. Patient had been discharged to the [facility] facility. Once patient was at the nursing facility her appetite markedly decreased and patient had implied that she was ready to . She did admit to depression and was started on antidepressant the day before return to this facility. Patient continues to have poor appetite here. This morning she is very confused and has had significant alteration in her cognition compared to the last time I saw the patient 48 hours ago. Patient's not speaking in full sentences she just blurts out 1 or 2 words. [facility] History I have reviewed the patient's past medical history: Yes Medical History: Reports:: Hyperlipidemia, Hypertension Denies:: Cancer, Diabetes Mellitus Type 1, Diabetes Mellitus Type 2, MRSA *Have you ever received a pneumonia vaccine?: Yes *Have you received a flu vaccine this season?: Yes Other Surgeries: Yes: No Previous Surgery Amputation: No Fractures: No - *Social History Last grade of school completed: High school graduate Smoking Status: Never smoker Alcohol Intake: never *Occupational Status:: retired Housing: [facility] *Travel in the last 8 weeks: None Family Hx:: Coronary Artery Disease Review of Systems - Review of Systems Review of systems:: unable to obtain Meds Home Medications Medication Instructions Recorded Confirmed Type cetirizine 10 mg tablet 10 mg PO HS 04/23/21 04/30/21 History pravastatin 20 mg tablet 20 mg PO HS 04/23/21 04/30/21 History Acetaminophen 1,000 mg PO Q6H PRN 04/30/21 04/30/21 History Aspirin 1 tab PO DAILY 04/30/21 04/30/21 History Citalopram Hydrobromide [Celexa] 10 mg PO HS 04/30/21 04/30/21 History Fludrocortisone Acetate [Florinef 0.1 mg PO AM 04/30/21 04/30/21 History 0.1mg tablet] Metoprolol Tartrate [Lopressor 12.5 mg PO BID 04/30/21 04/30/21 History 25mg tablet] Omeprazole [Omeprazole 20mg 1 cap PO AM 04/30/21 04/30/21 History Capsule] Allergies Allergy/AdvReac Type Severity Reaction Status Date / Time No Known Allergies Allergy Verified 04/23/21 09:38 Exam Vital signs and Labs for Last 24 Hours: Temp Pulse Resp BP Pulse Ox 97.3 F L 84 24 81/34 L 96 05/01/21 07:27 05/01/21 07:27 05/01/21 07:27 05/01/21 07:27 05/01/21 04:05 Laboratory Results - last 24 hr 04/30/21 10:09: WBC 12.9 H, RBC 4.73, Hgb 14.2, Hct 44.5, MCV 94.0, MCH 30.0, MCHC 32.0, RDW 18.6 H, Plt Count 188, MPV 8.9, Neut % (Auto) 82.0 H, Lymph % (Auto) 13.9, [place] % (Auto) 2.6, Eos % (Auto) 0.9, Baso % (Auto) 0.6, Neut # (Auto) 10.6 H, Lymph # (Auto) 1.8, [place] # (Auto) 0.3, Eos # (Auto) 0.1, Baso # (Auto) 0.1 04/30/21 10:09: Sodium 134 L, Potassium 4.1, Chloride 95 L, Carbon Dioxide 28, Anion Gap 15.1 H, BUN 77 H, Creatinine 3.10 H, Estimated Creat Clear 16, Estimated GFR 15 L*, Est GFR ( Amer) 18 L*, Glucose 54 L, Calcium 7.4 L, Total Bilirubin 1.7 H, AST 143 H, ALT 88 H, Alkaline Phosphatase 301 H, Troponin I 0.04 H, Total Protein 5.5 L, Albumin 2.3 L, Globulin 3.2, Albumin/Globulin Ratio 0.7 L 04/30/21 10:09: Lactate 2.3 H 04/30/21 14:00: SARS-CoV-2 (PCR) Not detected, Influenza A Untype (PCR) Not detected, Influenza Type B (PCR) Not detected 04/30/21 17:15: Random Glucose 58 L 04/30/21 17:31: POC Glucose 74 04/30/21 20:10: POC Glucose 173 H
[2021-05-01 08:15] LABS: Chloride 100 mmol/L (98-107)
[2021-05-01 08:15] LABS: Appearance,Urine SL CLOUDY (Clear); Blood, Urine 2+ (Negative); Color,Urine YELLOW (Yellow); Glucose,Urine (UA) TRACE (Negative); Ketones,Urine TRACE (Negative); Leukocyte Esterase,Urine 2+ (Negative); Nitrate,Urine POSITIVE (Negative); Protein,Urine 2+ (Negative); Specific Gravity, Urine >= 1.030 (1.005-1.030)
[2021-05-01 08:16] LABS: Sodium 135 mmol/L (136-145)
[2021-05-01 08:17] LABS: Bilirubin,Urine 2+ (Negative)
[2021-05-01 08:18] LABS: Creatinine Clearance Estimated 14 mL/min (50-200); Estimated Glomerular Filt Rate 13 ml/min (>60); GFR (African American) 16 ML/MIN (>60)
[2021-05-01 08:19] LABS: Calcium 7.4 mg/dl (8.4-10.2); Carbon Dioxide 23 mmol/L (22.0-30.0); Glucose 99 mg/dl (74-100)
--- NOTE | 2021-05-01 08:21 | CA_ITS ---
APPROVED REPORT Gymnastics Coach Or Instructor: CHAYA Study Quality: Technically Limited, Due to uncooperative patient. Indications: acute kidney injury, Hypotensive, Hx-HTN, Dementia. Pt refused to be positioned and would only lie LLD. Unable to control respirations. Risk Factors Hypertension Obesity Diabetes Renal Artery Doppler Proximal (R) 155.9/ cm/sec Mid (R) 204.6/ cm/sec Distal (R) 160.6/ cm/sec Renal Aorta Ratio (R) 2.34 Segmental A. (R) / cm/sec RI: 0.93 Segmental A. Sup (R) 51.0/3.0 cm/sec Segmental A. Mid (R) 60.0/5.0 cm/sec Segmental A. Inf (R) 51.0/5.0 cm/sec Mid (L) 87.0/0.0 cm/sec Renal Aorta Ratio (L) 0.00 Renal Measurements Kidney Size (R) 10.5x5.6 cm Cortical Thickness (R) 1.5 cm Findings An attempt was made to evaluate the abdominal aorta, the right and left renal arteries and kidneys, utilizing duplex ultrasonography and color flow doppler. This was a technically difficult and therefore limited exam due to the presence of bowel gas and abdominal movement with respiration. Limited exam due to Patient refusal to be positioned and would not be turned from Left lateral decubitus position no imaging of left kidney available. Duplex evaluation demonstrates less than 60% stenosis of the lright renal artery with a Renal/Aortic ratio (RAR) less than 3.5. The mid right renal artery displays tortuositry. Conclusion An attempt was made to evaluate the abdominal aorta, the right and left renal arteries and kidneys, utilizing duplex ultrasonography and color flow doppler. This was a technically difficult and therefore limited exam due to the presence of bowel gas and abdominal movement with respiration. Limited exam due to Patient refusal to be positioned and would not be turned from Left lateral decubitus position no imaging of left kidney available. Duplex evaluation demonstrates less than 60% stenosis of the lright renal artery with a Renal/Aortic ratio (RAR) less than 3.5. The mid right renal artery displays tortuositry. Electronically signed by : River Sheridan MD 05/01/2021 14:42:25
[2021-05-01 08:23] LABS: Blood Urea Nitrogen 81 mg/dl (7-17)
[2021-05-01 08:34] LABS: Procalcitonin 2.44 ng/mL (0.0-2.0)
[2021-05-01 09:05] LABS: Basophils # 0.1 K/mm3 (0-0.2); Basophils % 0.5 % (0.1-2.0); Eosinophils # 0.2 K/mm3 (0.0-0.4); Eosinophils % 1.4 % (0.1-12.0); Lymphocytes # 1.9 K/mm3 (0.7-4.5); Mean Corpuscular HGB Conc 32.3 g/dL (31.8-35.4); Mean Corpuscular Hemoglobin 30.4 pg (27.0-31.2); Mean Platelet Volume 8.8 fl (7.4-10.4); Monocytes # 0.4 K/mm3 (0.1-1.0); Monocytes % 2.9 % (1.7-9.3); Neutrophils # 12.2 K/mm3 (1.8-7.8); Neutrophils % 82.2 % (37.0-80.0); Platelet Count 142 K/mm3 (142-424); Red Blood Count 4.04 M/mm3 (4.20-5.40); White Blood Count 14.9 K/mm3 (4.8-10.8)
[2021-05-01 09:06] LABS: Ammonia 34 umol/L (9-30); Hemoglobin 12.3 g/dL (12.2-16.2)
[2021-05-01 09:23] LABS: Bacteria,Urine 2+ /lpf
--- NOTE | 2021-05-01 10:36 | SW/DCPLANNER ---
Addendum entered by Humera Green 05/07/21 10:36: PATIENT IS DISCHARGING TO [facility] THIS MORNING WITH HOSPICE, SISTER CAME TO DO THE PAPERWORK. Addendum entered by Humera Green 05/07/21 07:25: HOSPICE NURSE CAME TO SEE PATIENT AND EVALUATE PATIENT FOR THEIR SERVICES. SHE IS COMING BACK THIS MORNING () TO SPEAK WITH SISTER AND TO COORDINATE HER GOING TO [facility] UNDER HOSPICE SERVICES... Addendum entered by Humera Green 05/06/21 13:19: RECEIVED REFERRAL FOR A HOSPICE CONSULT FOR THIS PATIENT... I SENT REFERRAL TO [facility]OSPICE [facility]IG[facility] TO REVIEW AND SENT A MESSAGE TO [facility] TO INFORM THEM PATIENT WILL DISCHARGE BACK THERE [facility] AND HAVE HOSPICE TO FOLLOW FOR END OF LIFE OR PALLIATIVE CARE.... Addendum entered by Humera Green 05/06/21 07:39: SPOKE WITH DR MARSHALL THIS MORNING REGARDING THE DISCHARGE PLANS FOR THIS PATIENT.. DR MARSHALL HAS PUT IN A CARE MANAGEMENT CONSULT FOR HOSPICE.. WILL SPEAK WITH FAMILY TODAY TO SEE WHAT THEY WISH TO DO.. WILL ALSO NOTIFY [facility] AND SEE IF THEY ARE GOING TO USE HER MCR OR IF SHE CAN RETURN WITH HOSPICE. Addendum entered by Humera Green 05/05/21 07:54: SPOKE WITH [facility] YESTERDAY REGARDING FINANCES ON [facility] RETURNING TO [facility].. SHE WAS SKILLED THERE WHEN SHE LEFT BUT MAY NOT BE ABLE TO SKILL AND WILL NEED TO CONVERT TO A DIFFERENT PAYOR SOURCE.. WAITING TO SEE IF THEY CAN TAKE HER BACK SKILLED WHEN READY FOR DISPOSITION. Original Note: PATIENT WAS ADMITTED TO THE HOSPITAL FROM [facility] WITH ACUTE KIDNEY INJURY WHERE SHE WAS SKILLED THERE UNDER HER MEDICARE BENEFIT.. I DID MAKE CONTACT WITH RAJANI AT [facility] AND THEY ARE PLANNING ON HER RETURNING BACK THERE UPON DISCHARGE FROM THE HOSPITAL.. DISPOSITION UNCERTAIN BUT COULD BE SOON...
[2021-05-01 11:55] LABS: POC Glucose,Bedside 112 (70-110)
[2021-05-01 16:33] LABS: POC Glucose,Bedside 97 (70-110)
--- NOTE | 2021-05-01 20:03 | PC.NURSE ---
PT IS RESTING IN BED. PT HAS NOT BEEN COHERENT T/O THE SHIFT. WILL ANSWER VERY SIMPLE YES OR NO QUESTIONS. PT HAS NOT SPOKE IN COMPLETE SENTENCES T/O THE SHIFT. PT DID SIT UP ON THE SOB THIS SHIFT WITH THE SUPPORT OF 2 STAFF. PT WAS UNABLE TO HOLD SELF UP AND CONTINUOUSLY REPEATED OVER AND OVER DOWN,DOWN . PT WAS POSITIONED ON HER RT SIDE AND SUPPORTED WITH SEVERAL PILLOWS TO KEEP PT OFF LEFT SIDE FOR AWHILE. PT HAS REFUSED ALL MEALS THIS SHIFT. PT HAS ONLY HAD 50 ML'S OF OUP THIS SHIFT. CATHETER IRRIGATED WITH NO RESISTANCE NOTED WHEN INSTILLING FLUID. NOTIFIED PHYSICIAN REST ROOM ATTENDANT (500 ML IVF BOLUS ORDERED). LUNG SOUNDS DIMINISHED. ABDOMEN LARGE/SOFT/NON TENDER WITH HYPOACTIVE BOWEL SOUNDS. REDNESS/DISCOLORATION NOTED TO THIGHS/THOR AREA. SMALL ABRASION NOTED TO LT THIGH. 3+ PITTING EDEMA NOTED TO BLE. REPORT HANDOFF TO JASON CROWLEY RN.
[2021-05-01 20:49] LABS: POC Glucose,Bedside 89 (70-110)
[2021-05-02] VITALS: BP 97/43; PULSE 99; RESP 15; TEMP 36.4; O2SAT 93
[2021-05-02 02:23] LABS: POC Glucose,Bedside 52 (70-110)
[2021-05-02 02:23] LABS: POC Glucose,Bedside 64 (70-110)
[2021-05-02 04:00] VITALS: BP 113/40; PULSE 96; RESP 14; TEMP 36.4; O2SAT 100
[2021-05-02 05:00] VITALS: BMI 48.6
[2021-05-02 05:44] LABS: Basophils # 0.1 K/mm3 (0-0.2); Basophils % 0.9 % (0.1-2.0); Eosinophils # 0.2 K/mm3 (0.0-0.4); Hematocrit 38.5 % (37.0-47.0); Hemoglobin 11.9 g/dL (12.2-16.2); Lymphocytes # 1.4 K/mm3 (0.7-4.5); Lymphocytes % 9.2 % (10-50); Mean Corpuscular HGB Conc 30.9 g/dL (31.8-35.4); Mean Corpuscular Hemoglobin 30.1 pg (27.0-31.2); Mean Corpuscular Volume 97.5 fl (81-99); Mean Platelet Volume 9.4 fl (7.4-10.4); Monocytes # 0.4 K/mm3 (0.1-1.0); Monocytes % 2.8 % (1.7-9.3); Neutrophils # 12.9 K/mm3 (1.8-7.8); Neutrophils % 86.1 % (37.0-80.0); Platelet Count 151 K/mm3 (142-424); Red Blood Count 3.95 M/mm3 (4.20-5.40)
[2021-05-02 05:46] LABS: POC Glucose,Bedside 209 (70-110)
[2021-05-02 05:49] LABS: MANUAL DIFFERENTIAL MANUAL DIFFERENTIAL (MANUAL DIFF)
[2021-05-02 05:50] LABS: Anion Gap 15.3 mEq/L (5-15); Calcium 7.6 mg/dl (8.4-10.2); Carbon Dioxide 27 mmol/L (22.0-30.0); Chloride 94 mmol/L (98-107); Creatinine Clearance Estimated 12 mL/min (50-200); Estimated Glomerular Filt Rate 11 ml/min (>60); Glucose 167 mg/dl (74-100); Potassium 4.3 mmoL/L (3.5-5.1); Sodium 132 mmol/L (136-145)
[2021-05-02 05:53] LABS: Blood Urea Nitrogen 77 mg/dl (7-17)
[2021-05-02 05:54] LABS: GFR (African American) 14 ML/MIN (>60)
[2021-05-02 05:58] LABS: Anisocytosis 2+; Hypochromasia 2+; Lymphocytes % 11 % (10-50); Monocytes % 1 % (2-9); Neutrophils % 81 % (42-76); Platelet Estimate Normal; Total Cells Counted 100
--- NOTE | 2021-05-02 06:02 | PC.NURSE ---
Pt has rested well t/o shift. Pt stated Name, at beginning of shift, can also give short answers to questions asked. Pt remains on RA with O2 sats >90%. Pt voiced no c/o of pain, N/V this shift. FSBS check at 02:00 was 52, gave patient 2 cups of orange juice with sugar. Checked again 20 minutes and FSBS was 64. Fluids remain infusing at 150ml/hr. FSBS check at 05:00 was 19, Ordered STAT blood draw, gave 1 Amp of Dextrose, [place] juice with sugar and pt's lab stat was 167. Pt remained A/O stated name, , place, and year. Maier remains in place with very little output t/o shift. Pt has stated several times she needs to pee, explained to pt she has a maier in place.
[2021-05-02 06:07] LABS: Procalcitonin 2.23 ng/mL (0.0-2.0)
[2021-05-02 08:00] VITALS: BP 104/50; PULSE 98; RESP 16; TEMP 36.6; O2SAT 97
--- NOTE | 2021-05-02 08:09 | HMH.ACPN2 ---
Internal Medicine - PN: Subj *Date: 05/02/21 *Time: 08:09 Interval history: Patient has no new complaints this morning. She is continued to have periods of hypoglycemia treated with D50. Urine output remains low. Renal ultrasound yesterday was only partially successful due to patient cooperation. Patient continues to states she has to urinate despite being reminded she has a Kumar catheter in place Exam Vital signs and Labs for Last 24 Hours: Temp Pulse Resp BP Pulse Ox 97.5 F L 96 H 14 113/40 L 100 05/02/21 04:00 05/02/21 04:00 05/02/21 04:00 05/02/21 04:00 05/02/21 04:00 Laboratory Results - last 24 hr 05/01/21 06:27: Urine Color Yellow, Urine Appearance Sl cloudy, Urine pH 5.0, Ur Specific [place] >= 1.030, Urine Protein 2+, Urine Glucose (UA) Trace, Urine Ketones Trace, Urine Blood 2+, Urine Nitrate Positive, Urine Bilirubin 2+ A, Urine Urobilinogen 2.0, Ur Leukocyte Esterase 2+ A, Urine RBC 5-10, Urine WBC 5-10, Ur Renal Epithelial Cell 10-20, Urine Bacteria 2+ 05/01/21 07:00: Procalcitonin 2.44 H 05/01/21 07:00: Sodium 135 L, Potassium 5.0 D, Chloride 100, Carbon Dioxide 23, Anion Gap 17.0 H, BUN 81 H, Creatinine 3.40 H, Estimated Creat Clear 14, Estimated GFR 13 L*, Est GFR ( Amer) 16 L*, Glucose 99 D, Calcium 7.4 L 05/01/21 08:43: WBC 14.9 H, RBC 4.04 L, Hgb 12.3 D, Hct 38.0, MCV 94.0, MCH 30.4, MCHC 32.3, RDW 19.0 H, Plt Count 142, MPV 8.8, Neut % (Auto) 82.2 H, Lymph % (Auto) 13.0, [place] % (Auto) 2.9, Eos % (Auto) 1.4, Baso % (Auto) 0.5, Neut # (Auto) 12.2 H, Lymph # (Auto) 1.9, [place] # (Auto) 0.4, Eos # (Auto) 0.2, Baso # (Auto) 0.1 05/01/21 08:43: Ammonia 34 H 05/01/21 11:48: POC Glucose 112 H 05/01/21 16:26: POC Glucose 97 05/01/21 20:32: POC Glucose 89 05/02/21 01:55: POC Glucose 52 L 05/02/21 02:15: POC Glucose 64 L 05/02/21 05:20: Procalcitonin 2.23 H 05/02/21 05:20: WBC 15.0 H, RBC 3.95 L, Hgb 11.9 L, Hct 38.5, MCV 97.5, MCH 30.1, MCHC 30.9 L, RDW 19.0 H, Plt Count 151, MPV 9.4, Neut % (Auto) 86.1 H, Lymph % (Auto) 9.2 L, [place] % (Auto) 2.8, Eos % (Auto) 1.0, Baso % (Auto) 0.9, Neut # (Auto) 12.9 H, Lymph # (Auto) 1.4, [place] # (Auto) 0.4, Eos # (Auto) 0.2, Baso # (Auto) 0.1, Total Counted 100, Neutrophils % (Manual) 81 H, Band Neutrophils % 7.0, Lymphocytes % (Manual) 11, Monocytes % (Manual) 1 L, Platelet Estimate Normal, Hypochromasia 2+, Anisocytosis 2+ 05/02/21 05:20: Sodium 132 L, Potassium 4.3, Chloride 94 L, Carbon Dioxide 27, Anion Gap 15.3 H, BUN 77 H, Creatinine 3.90 H, Estimated Creat Clear 12, Estimated GFR 11 L*, Est GFR ( Amer) 14 L*, Glucose 167 H D, Calcium 7.6 L 05/02/21 05:26: POC Glucose 209 H I & O for Last 24 hours: Intake & Output 04/29/21 04/30/21 05/01/21 05/02/21 11:59 11:59 11:59 11:59 Intake Total 983 / 983 0 / 0 Output Total 200 / 200 0 / 0 Balance 783 / 783 0 / 0 Weight 292 lb 295 lb 4.8 oz 302 lb 8 oz Microbiology Reports for the Last 24 Hours: Microbiology 05/01/21 06:27 Urine,Catheterized Urine Culture - Preliminary Gram Negative Rods Narrative: Patient is disheveled. She is in no distress. Lungs are clear. Heart has a regular rate and rhythm. Abdomen is obese and soft. Assessment and Plan (1) BURTON (acute kidney injury) Status: Acute Category: Medical Code(s): N17.9 - Acute kidney failure, unspecified (2) Multiple organ failure Status: Acute Category: Medical (3) Hypotension Status: Resolved Qualifiers: Hypotension type: unspecified hypotension type Qualified Code(s): I95.9 - Hypotension, unspecified Category: Medical Code(s): I95.9 - Hypotension, unspecified (4) Left lower lobe pneumonia Status: Acute Category: Medical Code(s): J18.9 - Pneumonia, unspecified organism (5) Hypoglycemia Status: Acute Category: Medical Code(s): E16.2 - Hypoglycemia, unspecified (6) Urinary tract infection Status: Acute Category: Medical Code(s): N39.0 - Urinary
[2021-05-02 16:00] VITALS: BP 101/39; PULSE 101; RESP 18; TEMP 36.7; O2SAT 95
[2021-05-02 20:00] VITALS: BP 99/52; PULSE 96; RESP 18; TEMP 36.5; O2SAT 97
[2021-05-02 20:22] LABS: POC Glucose,Bedside 123 (70-110)
[2021-05-02 20:22] LABS: POC Glucose,Bedside 111 (70-110)
[2021-05-02 20:22] LABS: POC Glucose,Bedside 85 (70-110)
[2021-05-02 20:22] LABS: POC Glucose,Bedside 88 (70-110)
[2021-05-02 21:44] LABS: POC Glucose,Bedside 76 (70-110)
[2021-05-02 23:34] VITALS: BP 102/55; PULSE 91; RESP 17; TEMP 36.6; O2SAT 97
[2021-05-03 01:10] LABS: POC Glucose,Bedside 102 (70-110)
[2021-05-03 04:00] VITALS: BP 107/58; PULSE 103; RESP 16; TEMP 36.6; O2SAT 97
[2021-05-03 04:42] VITALS: BMI 49.0
[2021-05-03 05:30] LABS: POC Glucose,Bedside 88 (70-110)
[2021-05-03 08:00] VITALS: BP 106/42; PULSE 105; RESP 18; TEMP 36.4; O2SAT 95
--- NOTE | 2021-05-03 08:13 | HMH.ACPN2 ---
Internal Medicine - PN: Subj *Date: 05/03/21 *Time: 08:13 Interval history: Patient is more coherent this morning. She would like to sit up from her current position which is Trendelenburg due to her hypotension. IV fluids continue at 150 an hour. Patient denies pain Exam Vital signs and Labs for Last 24 Hours: Temp Pulse Resp BP Pulse Ox 98 F 103 H 16 107/58 L 97 05/03/21 04:00 05/03/21 04:00 05/03/21 04:00 05/03/21 04:00 05/03/21 04:00 Laboratory Results - last 24 hr 05/02/21 07:43: POC Glucose 111 H 05/02/21 11:31: POC Glucose 85 05/02/21 13:09: POC Glucose 123 H 05/02/21 16:11: POC Glucose 88 05/02/21 21:21: POC Glucose 76 05/03/21 01:03: POC Glucose 102 05/03/21 05:23: POC Glucose 88 I & O for Last 24 hours: Intake & Output 04/30/21 05/01/21 05/02/21 05/03/21 11:59 11:59 11:59 11:59 Intake Total 983 / 983 0 / 0 370 / 370 Output Total 200 / 200 0 / 0 125 / 125 Balance 783 / 783 0 / 0 245 / 245 Weight 292 lb 295 lb 4.8 oz 302 lb 8 oz 305 lb 1 oz Microbiology Reports for the Last 24 Hours: Microbiology 04/30/21 10:09 Blood Blood Culture - Preliminary NO GROWTH AFTER 48 HOURS 04/30/21 10:09 Blood Blood Culture - Preliminary NO GROWTH AFTER 48 HOURS 05/01/21 06:27 Urine,Catheterized Urine Culture - Preliminary Gram Negative Rods Narrative: Patient is in no distress. Lungs are clear although diminished at the bases. Heart has a regular rate and rhythm. Abdomen is soft. Lower extremities have 2-3+ edema. Patient has some pressure injury to her left wrist where she laid it across the bed rail. Urine output remains low. Labs are pending this morning Assessment and Plan (1) BURTON (acute kidney injury) Status: Acute Category: Medical Code(s): N17.9 - Acute kidney failure, unspecified (2) Multiple organ failure Status: Acute Category: Medical (3) Hypotension Status: Resolved Qualifiers: Hypotension type: unspecified hypotension type Qualified Code(s): I95.9 - Hypotension, unspecified Category: Medical Code(s): I95.9 - Hypotension, unspecified (4) Left lower lobe pneumonia Status: Acute Category: Medical Code(s): J18.9 - Pneumonia, unspecified organism (5) Hypoglycemia Status: Acute Category: Medical Code(s): E16.2 - Hypoglycemia, unspecified (6) Urinary tract infection Status: Acute Category: Medical Code(s): N39.0 - Urinary tract infection, site not specified (7) Sepsis Status: Acute Category: Medical Code(s): A41.9 - Sepsis, unspecified organism - Assessment and plan all Dx Assessment and Plan for all problems:: 1. Continue current plan of care. Patient may be turning the corner towards improvement.
[2021-05-03 08:31] LABS: Basophils # 0.1 K/mm3 (0-0.2); Basophils % 1.3 % (0.1-2.0); Eosinophils # 0.3 K/mm3 (0.0-0.4); Eosinophils % 3.5 % (0.1-12.0); Hematocrit 37.5 % (37.0-47.0); Hemoglobin 12.6 g/dL (12.2-16.2); Lymphocytes # 1.3 K/mm3 (0.7-4.5); Lymphocytes % 17.3 % (10-50); Mean Corpuscular HGB Conc 33.7 g/dL (31.8-35.4); Mean Corpuscular Hemoglobin 32.3 pg (27.0-31.2); Mean Corpuscular Volume 95.7 fl (81-99); Mean Platelet Volume 11.8 fl (7.4-10.4); Monocytes # 0.4 K/mm3 (0.1-1.0); Monocytes % 5.7 % (1.7-9.3); Neutrophils # 5.7 K/mm3 (1.8-7.8); Neutrophils % 73.6 % (37.0-80.0); Red Blood Count 3.92 M/mm3 (4.20-5.40); Red Cell Distribution Width 18.6 % (11.5-17.5); White Blood Count 7.7 K/mm3 (4.8-10.8)
[2021-05-03 08:33] LABS: Platelet Count 158 K/mm3 (142-424)
[2021-05-03 09:13] LABS: Blood Urea Nitrogen 79 mg/dl (7-17); Creatinine Clearance Estimated 13 mL/min (50-200); Estimated Glomerular Filt Rate 12 ml/min (>60); GFR (African American) 15 ML/MIN (>60)
--- NOTE | 2021-05-03 10:56 | HMH.ACPN ---
Internal Medicine - PN: Subj *Date: 05/03/21 *Time: 10:56 Exam Vital signs and Labs for Last 24 Hours: Temp Pulse Resp BP Pulse Ox 97.6 F 105 H 18 106/42 L 95 05/03/21 08:00 05/03/21 08:00 05/03/21 08:00 05/03/21 08:00 05/03/21 08:00 Laboratory Results - last 24 hr 05/02/21 07:43: POC Glucose 111 H 05/02/21 11:31: POC Glucose 85 05/02/21 13:09: POC Glucose 123 H 05/02/21 16:11: POC Glucose 88 05/02/21 21:21: POC Glucose 76 05/03/21 01:03: POC Glucose 102 05/03/21 05:23: POC Glucose 88 05/03/21 08:20: WBC 7.7 D, RBC 3.92 L, Hgb 12.6, Hct 37.5, MCV 95.7, MCH 32.3 H, MCHC 33.7, RDW 18.6 H, Plt Count 158, MPV 11.8 H, Neut % (Auto) 73.6, Lymph % (Auto) 17.3, [place] % (Auto) 5.7, Eos % (Auto) 3.5, Baso % (Auto) 1.3, Neut # (Auto) 5.7, Lymph # (Auto) 1.3, [place] # (Auto) 0.4, Eos # (Auto) 0.3, Baso # (Auto) 0.1 05/03/21 08:23: Sodium TNP, Potassium TNP, Chloride TNP, Carbon Dioxide TNP, Anion Gap TNP, BUN 79 H, Creatinine 3.60 H, Estimated Creat Clear 13, Estimated GFR 12 L*, Est GFR ( Amer) 15 L*, Glucose TNP, Calcium TNP I & O for Last 24 hours: Intake & Output 04/30/21 05/01/21 05/02/21 05/03/21 23:59 23:59 23:59 23:59 Intake Total 983 / 983 370 / 370 Output Total 0 / 0 200 / 200 125 / 125 Balance 0 / 0 783 / 783 245 / 245 Weight 131.117 kg 133.946 kg 137.212 kg 138.374 kg Microbiology Reports for the Last 24 Hours: Microbiology 05/01/21 06:27 Urine,Catheterized Urine Culture - Final Escherichia coli 04/30/21 10:09 Blood Blood Culture - Preliminary NO GROWTH AFTER 48 HOURS 04/30/21 10:09 Blood Blood Culture - Preliminary NO GROWTH AFTER 48 HOURS Assessment and Plan (1) BURTON (acute kidney injury) Status: Acute Category: Medical Code(s): N17.9 - Acute kidney failure, unspecified (2) Multiple organ failure Status: Acute Category: Medical (3) Hypotension Status: Resolved Qualifiers: Hypotension type: unspecified hypotension type Qualified Code(s): I95.9 - Hypotension, unspecified Category: Medical Code(s): I95.9 - Hypotension, unspecified (4) Left lower lobe pneumonia Status: Acute Category: Medical Code(s): J18.9 - Pneumonia, unspecified organism (5) Hypoglycemia Status: Acute Category: Medical Code(s): E16.2 - Hypoglycemia, unspecified (6) Urinary tract infection Status: Acute Category: Medical Code(s): N39.0 - Urinary tract infection, site not specified (7) Sepsis Status: Acute Category: Medical Code(s): A41.9 - Sepsis, unspecified organism The patient's infection will respond to the chosen ABx?: Yes Is the patient receiving the right drug, dose, and route?: Yes Could a more targeted ABx be ordered?: No (E. COLI SENSITIVE TO ROCEPHIN)
[2021-05-03 12:05] LABS: POC Glucose,Bedside 82 (70-110)
[2021-05-03 16:00] VITALS: BP 140/57; PULSE 82; RESP 17; TEMP 36.5; O2SAT 92
[2021-05-03 20:00] VITALS: BP 128/63; PULSE 105; RESP 18; TEMP 36.8; O2SAT 90
[2021-05-03 21:52] LABS: POC Glucose,Bedside 50 (70-110)
[2021-05-03 21:52] LABS: POC Glucose,Bedside 91 (70-110)
[2021-05-03 22:54] LABS: POC Glucose,Bedside 51 (70-110)
[2021-05-04] VITALS: BP 110/75; PULSE 107; RESP 16; TEMP 37.2; O2SAT 99
[2021-05-04 00:30] LABS: POC Glucose,Bedside 129 (70-110)
--- NOTE | 2021-05-04 01:42 | PC.NURSE ---
Patient was able to answer all of orientation questions appropriately (A&Ox4). Patient refused her PO medications. When asked why she wouldn't take them, patient's response was I don't want too . Patient refuses to move from her left side and the patient is aware that she is beginning to have pressure sores from laying in the same position. This RN has attempted placing pillows and patient makes no effort in to assist staff. Patient did required a AMP of D50 this shift.
--- NOTE | 2021-05-04 01:56 | PC.NURSE ---
Patient was able to answer all of orientation questions appropriately (A&Ox4). She is able to tell me her name, , the year, the month, where she is at and why she is here. Patient refused her PO medications. When asked why she wouldn't take them, patient's response was I don't want too . Patient refuses to move from her left side and the patient is aware that she is beginning to have pressure sores from laying in the same position. This RN has attempted placing pillows to redistribute pressure and patient makes no effort in to assist staff. Patient did required a AMP of D50 this shift. This RN will continue to attempt to reposition patient.
--- NOTE | 2021-05-04 02:11 | PC.WOUNDNOTE ---
Medial aspect of left thigh Medial aspect of left calf
[2021-05-04 04:40] VITALS: BP 109/69; PULSE 100; RESP 19; TEMP 36.8; O2SAT 100
[2021-05-04 04:48] LABS: POC Glucose,Bedside 80 (70-110)
[2021-05-04 05:00] VITALS: BMI 49.1
--- NOTE | 2021-05-04 07:03 | HMH.ACPN2 ---
Internal Medicine - PN: Subj *Date: 05/04/21 *Time: 07:03 Interval history: No complaints from patient. No acute events over the last 24 hours. She did require administration of D50 due to hypoglycemia. Exam Vital signs and Labs for Last 24 Hours: Temp Pulse Resp BP Pulse Ox 98.3 F 100 H 19 109/69 L 100 05/04/21 04:40 05/04/21 04:40 05/04/21 04:40 05/04/21 04:40 05/04/21 04:40 Laboratory Results - last 24 hr 05/03/21 08:20: WBC 7.7 D, RBC 3.92 L, Hgb 12.6, Hct 37.5, MCV 95.7, MCH 32.3 H, MCHC 33.7, RDW 18.6 H, Plt Count 158, MPV 11.8 H, Neut % (Auto) 73.6, Lymph % (Auto) 17.3, [place] % (Auto) 5.7, Eos % (Auto) 3.5, Baso % (Auto) 1.3, Neut # (Auto) 5.7, Lymph # (Auto) 1.3, [place] # (Auto) 0.4, Eos # (Auto) 0.3, Baso # (Auto) 0.1 05/03/21 08:23: Sodium TNP, Potassium TNP, Chloride TNP, Carbon Dioxide TNP, Anion Gap TNP, BUN 79 H, Creatinine 3.60 H, Estimated Creat Clear 13, Estimated GFR 12 L*, Est GFR ( Amer) 15 L*, Glucose TNP, Calcium TNP 05/03/21 11:55: POC Glucose 82 05/03/21 17:13: POC Glucose 91 05/03/21 21:21: POC Glucose 50 L 05/03/21 22:47: POC Glucose 51 L 05/04/21 00:13: POC Glucose 129 H 05/04/21 04:40: POC Glucose 80 I & O for Last 24 hours: Intake & Output 05/01/21 05/02/21 05/03/21 05/04/21 11:59 11:59 11:59 11:59 Intake Total 983 / 983 0 / 0 470 / 470 50 / 50 Output Total 200 / 200 0 / 0 125 / 125 500 / 500 Balance 783 / 783 0 / 0 345 / 345 -450 / -450 Weight 295 lb 4.8 oz 302 lb 8 oz 305 lb 1 oz 305 lb 5.443 oz Microbiology Reports for the Last 24 Hours: Microbiology 05/01/21 06:27 Urine,Catheterized Urine Culture - Final Escherichia coli Narrative: Patient is in no distress. She awakens easily this morning but is rather drowsy and falls back to sleep intermittently during interview. Lungs are clear. Heart has a regular rate and rhythm. Abdomen is obese and soft. Kumar catheter remains anchored. Lower extremities remain edematous. Urine cultures growing E. coli Labs from yesterday did show early improvement in renal function. Urine output has increased over the last 24 hours Assessment and Plan (1) BURTON (acute kidney injury) Status: Acute Category: Medical Code(s): N17.9 - Acute kidney failure, unspecified (2) Multiple organ failure Status: Resolved Category: Medical (3) Hypotension Status: Resolved Qualifiers: Hypotension type: unspecified hypotension type Qualified Code(s): I95.9 - Hypotension, unspecified Category: Medical Code(s): I95.9 - Hypotension, unspecified (4) Left lower lobe pneumonia Status: Acute Category: Medical Code(s): J18.9 - Pneumonia, unspecified organism (5) Hypoglycemia Status: Acute Category: Medical Code(s): E16.2 - Hypoglycemia, unspecified (6) Urinary tract infection Status: Acute Category: Medical Code(s): N39.0 - Urinary tract infection, site not specified (7) Sepsis Status: Resolved Qualifiers: Sepsis type: Escherichia coli Sepsis acute organ dysfunction status: with acute organ dysfunction Severe sepsis acute organ dysfunction type: acute renal failure Acute renal failure type: unspecified Severe sepsis shock status: without septic shock Qualified Code(s): A41.51 - Sepsis due to Escherichia coli [E. coli]; R65.20 - Severe sepsis without septic shock; N17.9 - Acute kidney failure, unspecified Category: Medical Code(s): A41.9 - Sepsis, unspecified organism (8) E coli infection Status: Acute Category: Medical Code(s): A49.8 - Other bacterial infections of unspecified site - Assessment and plan all Dx Assessment and Plan for all problems:: 1. Continue IV Rocephin for E. coli UTI 2. Out of bed to chair today 3. Continue D5 half-normal saline with potassium chloride for patient's hypoglycemia as well as hypotension. Blood pressure seems to be improving overall. Continue to monitor urine output 4. Once pat
[2021-05-04 08:00] VITALS: BP 107/53; PULSE 108; RESP 18; TEMP 36.3
[2021-05-04 09:13] LABS: Basophils # 0.2 K/mm3 (0-0.2); Eosinophils # 0.5 K/mm3 (0.0-0.4); Eosinophils % 2.5 % (0.1-12.0); Hematocrit 44.2 % (37.0-47.0); Hemoglobin 13.7 g/dL (12.2-16.2); Lymphocytes # 2.1 K/mm3 (0.7-4.5); Lymphocytes % 10.9 % (10-50); Mean Corpuscular HGB Conc 30.9 g/dL (31.8-35.4); Mean Corpuscular Hemoglobin 29.8 pg (27.0-31.2); Mean Corpuscular Volume 96.6 fl (81-99); Mean Platelet Volume 9.1 fl (7.4-10.4); Monocytes # 0.5 K/mm3 (0.1-1.0); Monocytes % 2.5 % (1.7-9.3); Neutrophils # 16.2 K/mm3 (1.8-7.8); Neutrophils % 83.1 % (37.0-80.0); Platelet Count 100 K/mm3 (142-424); Red Blood Count 4.58 M/mm3 (4.20-5.40); Red Cell Distribution Width 18.8 % (11.5-17.5); White Blood Count 19.5 K/mm3 (4.8-10.8)
[2021-05-04 10:27] LABS: MANUAL DIFFERENTIAL MANUAL DIFFERENTIAL (MANUAL DIFF)
[2021-05-04 11:03] LABS: POC Glucose,Bedside 91 (70-110)
--- NOTE | 2021-05-04 12:07 | HMH.PTEV ---
Physical Therapy Evaluation Rehab PT IP Evaluation Start: 05/04/21 07:07 Freq: ONCE Status: Active Protocol: Document 05/04/21 12:00 PHORCAROLINA (Rec: 05/04/21 12:07 PHORNE [id number]) Subjective/History History History 70 yowf adm to [facility] with UTI and PNA. She remains somewhat lethargic this am requiring cues to remain on task. She reports she lives alone and uses a cane or walker for ambulation as needed. Subjective Subjective Pt somewhat lethargic this am, no c/o pain at this time. She states, I can't get up because my knees won't bend. Rehab PT IP Eval Objective Appearance Patient Behavior Cooperative,Sedated Patient Orientation Person,Place Difficulty following instructions none Speech Pattern Clear Ambulation Patient Able to Ambulate No Balance Ability to Arise Able, uses arms to help Sitting Balance Leans or slides in chair Dynamic Sitting Balance Ability Poor Transfers Bed Transfer Ability Maximum x 1 (75% assist) Rehab PT IP prob,goals,plan Problems Date of Evaluation: 05/04/21 PT IP Problems Bed Mobility,Transfers,Gait Rehab Potential Rehab Potential Fair Plan PT Intervention Plan Bed Mobility,Transfers,Gait, Balance,Self care,Therapeutic Exercise PT Plan Frequency BID Duration LOS Discharge Goals Bed Transfer Ability Moderate x 1 (50% assist) Sit to Stand Chair Transfer Ability Maximum x 2 (75% assist) Discharge Plan PT Discharge Plan Pt is currently lethargic and difficult to convince to assist with her care. She is currently most appropriate for long chain beamer care and rehab. She is currently unable to care for herself independently and would be at high risk for further injury should she return home. G -code Required No Eval Complexity Eval Charge Codes 22769 - Moderate Complexity PHYSICIAN CERTIFICATION: I certify the specified therapy services for No Chen are required, authorized, and reviewed every 30 days.
--- NOTE | 2021-05-04 12:11 | HMH.PTWOUND ---
Rehab Inpt Wound Evaluation Rehab IP Wound Evaluation Start: 05/04/21 02:13 Freq: ONCE Status: Active Protocol: Document 05/04/21 12:08 PHOFLYNN (Rec: 05/04/21 12:11 PHORNE [id number]) Rehab PT Wound Assessment Subjective Subjective Pt somewhat lethargic this am, no c/o pain at this time. She states, I can't get up because my knees won't bend. Wound Left Medial Calf Wound Type Pressure Ulcer Is This a Chronic Wound No Wound Staging Stage II Query Text:Stage I - Unbroken, red skin, no blanching. Stage II - Skin broken, superficial skin loss involving epidermis alone or also dermis. Partial loss of skin layers. Stage III - Pressure area involves epidermis, dermis and subcutaneous tissue, full thickness skin loss. Stage IV - Pressure area involves epidermis, subcutaneous tissue, bone and other supportive tissue. Full thickness skin loss with extensive destruction of underlying tissue and structures. Wound Length (cm) 0.2 Wound Width (cm) 0.2 Wound Bed Appearance Yellow Wound Margins Description Well Defined Surrounding Tissue Appearance [place] Edema Type Pitting Edema Degree 3+ Query Text:1+ Trace, Barely Detectable, Rebound 15-30 seconds 2+ Moderate, Slight Indentation, Rebound 10-20 seconds 3+ Deep, Deeper Indentation, Rebound > 30 seconds 4+ Very Deep, Rebound > 60 seconds Primary Dressing Composite Dressing Change Patient Tolerance Tolerated Well Left Medial Thigh Wound Type Pressure Ulcer Is This a Chronic Wound No Wound Staging Stage II Query Text:Stage I - Unbroken, red skin, no blanching. Stage II - Skin broken, superficial skin loss involving epidermis alone or also dermis. Partial loss of skin layers. Stage III - Pressure area involves epidermis, dermis and subcutaneous tissue, full thickness skin loss. Stage IV - Pressure area involves epidermis, subcutaneous tissue, bone and other supportive tissue. Full thickness skin loss with extensive destruction of underlying tissue and structures. Wound Length (cm) 0.2 Wound Width (cm) 0.2 Wound Bed Appearance Yellow Wound Margins Description Well Defined Surrounding Tissu
[2021-05-04 13:00] VITALS: BP 115/67; PULSE 101; RESP 18; TEMP 36.4; O2SAT 100
[2021-05-04 13:19] LABS: Lymphocytes % 10 % (10-50); Monocytes % 3 % (2-9); Neutrophils % 87 % (42-76); Platelet Estimate Slight Decrease; RBC Morphology Normal; Total Cells Counted 100
[2021-05-04 13:40] LABS: Chloride 100 mmol/L (98-107); Potassium 5.7 mmoL/L (3.5-5.1); Sodium 133 mmol/L (136-145)
[2021-05-04 13:43] LABS: Blood Urea Nitrogen 76 mg/dl (7-17); Creatinine Clearance Estimated 17 mL/min (50-200); Estimated Glomerular Filt Rate 16 ml/min (>60); GFR (African American) 19 ML/MIN (>60)
[2021-05-04 13:44] LABS: Anion Gap 15.7 mEq/L (5-15); Calcium 7.9 mg/dl (8.4-10.2); Carbon Dioxide 23 mmol/L (22.0-30.0); Glucose 100 mg/dl (74-100)
--- NOTE | 2021-05-04 14:05 | DIET.NUTRFU ---
Patient continues to refuse meal intake, does not want anything. Ensure is ordered already. D5 provided secondary to hypoglycemic episode. Patient is at risk for dehydration, weight loss and malnutrition if does not eat. Weight is up 7kg since 04/30 possible d/t fluid gains, receiving IVF since admit. +3 pitting edema noted in wound note on 05/04. Renal labs continue to be elevated with BUN 76 and Cr 2.9, provider indicated she is showing some improvement. Remeron was also started on 05/04, may increase appetite. Stage II noted to L medial calf 0.2x0.[address] Based on meal intake patient is not meeting nutritional needs and is at increased risk for dehydration, wt loss, malnutrition and further skin breakdown. May need to pursue tubefeeding wishes and determine future POC.
[2021-05-04 16:00] VITALS: BP 161/65; PULSE 104; RESP 18; TEMP 36.4
[2021-05-04 18:18] LABS: POC Glucose,Bedside 70 (70-110)
[2021-05-04 20:00] VITALS: BP 98/48; PULSE 107; RESP 16; TEMP 36.4; O2SAT 100; O2SAT 99
[2021-05-04 20:37] LABS: POC Glucose,Bedside 84 (70-110)
[2021-05-05] VITALS: BP 123/42; PULSE 110; RESP 15; TEMP 36.7; O2SAT 98
[2021-05-05 00:48] LABS: POC Glucose,Bedside 84 (70-110)
[2021-05-05 04:00] VITALS: BP 117/88; PULSE 105; RESP 14; TEMP 36.6; O2SAT 98
[2021-05-05 05:00] VITALS: BMI 49.8
[2021-05-05 05:33] LABS: POC Glucose,Bedside 92 (70-110)
--- NOTE | 2021-05-05 07:14 | US_ITS ---
FINAL REPORT CLINICAL HISTORY: EPIGASTRIC TENDERNESS FINDINGS: ABDOMINAL ULTRASOUND COMPLETE: TECHNIQUE: Ultrasound images of the abdomen were obtained. FINDINGS: Difficult exam secondary to patient condition and body habitus. There are a multitude of hypoechoic nodular masses throughout the liver. The gallbladder contains sludge. The common duct is normal. The right kidney measures 9.7 cm in length and is normal in echogenicity without hydronephrosis. The left kidney measures 10.7 cm in length and is normal in echogenicity without hydronephrosis. The spleen is unremarkable. The aorta and vena cava are not well seen. There is a moderate amount of ascites in the upper abdomen. IMPRESSION: Significantly limited exam. Moderate ascites in the upper abdomen. Nodular, hypoechoic masses throughout the liver. These are poorly characterized by ultrasound. Infused CT is highly recommended for further evaluation. Reviewed, Interpreted and Dictated by Virgilio Gallegos MD Transcribed by Cristo Cerda Authenticated by Virgilio Gallegos MD on 05/05/2021 10:35:38 AM [facility]
--- NOTE | 2021-05-05 07:25 | HMH.ACPN2 ---
Internal Medicine - PN: Subj *Date: 05/05/21 *Time: 07:25 Interval history: Patient has no complaints this morning. Patient refused all meals yesterday. She denies hunger. She does report some epigastric abdominal pain. Exam Vital signs and Labs for Last 24 Hours: Temp Pulse Resp BP Pulse Ox 97.9 F 105 H 14 117/88 98 05/05/21 04:00 05/05/21 04:00 05/05/21 04:00 05/05/21 04:00 05/05/21 04:00 Laboratory Results - last 24 hr 05/04/21 06:06: WBC 19.5 H D, RBC 4.58, Hgb 13.7, Hct 44.2, MCV 96.6, MCH 29.8, MCHC 30.9 L, RDW 18.8 H, Plt Count 100 L D, MPV 9.1, Neut % (Auto) 83.1 H, Lymph % (Auto) 10.9, [place] % (Auto) 2.5, Eos % (Auto) 2.5, Baso % (Auto) 1.0, Neut # (Auto) 16.2 H, Lymph # (Auto) 2.1, [place] # (Auto) 0.5, Eos # (Auto) 0.5 H, Baso # (Auto) 0.2, Total Counted 100, Neutrophils % (Manual) 87 H, Lymphocytes % (Manual) 10, Monocytes % (Manual) 3, Platelet Estimate Slight decrease, RBC Morphology Normal 05/04/21 10:54: POC Glucose 91 05/04/21 12:05: Sodium 133 L, Potassium 5.7 H D, Chloride 100, Carbon Dioxide 23, Anion Gap 15.7 H, BUN 76 H, Creatinine 2.90 H, Estimated Creat Clear 17, Estimated GFR 16 L*, Est GFR ( Amer) 19 L* D, Glucose 100, Calcium 7.9 L 05/04/21 18:11: POC Glucose 70 05/04/21 20:13: POC Glucose 84 05/05/21 00:41: POC Glucose 84 05/05/21 05:26: POC Glucose 92 I & O for Last 24 hours: Intake & Output 05/02/21 05/03/21 05/04/21 05/05/21 11:59 11:59 11:59 11:59 Intake Total 0 / 0 470 / 470 50 / 50 0 / 0 Output Total 0 / 0 125 / 125 500 / 500 300 / 300 Balance 0 / 0 345 / 345 -450 / -450 -300 / -300 Weight 302 lb 8 oz 305 lb 1 oz 305 lb 5.443 oz 310 lb 1.6 oz - Constitutional no acute distress - *Routine Respiratory Exam Present: CTA bilaterally - *Routine Cardiovascular Exam Present: RRR - *Routine Abdominal Exam Comments: Epigastric tenderness and patient has palpable mass in the epigastrium. Bowel sounds are present Assessment and Plan (1) BURTON (acute kidney injury) Status: Acute Category: Medical Code(s): N17.9 - Acute kidney failure, unspecified (2) Multiple organ failure Status: Resolved Category: Medical (3) Hypotension Status: Resolved Qualifiers: Hypotension type: unspecified hypotension type Qualified Code(s): I95.9 - Hypotension, unspecified Category: Medical Code(s): I95.9 - Hypotension, unspecified (4) Left lower lobe pneumonia Status: Resolved Category: Medical Code(s): J18.9 - Pneumonia, unspecified organism (5) Hypoglycemia Status: Acute Category: Medical Code(s): E16.2 - Hypoglycemia, unspecified (6) Urinary tract infection Status: Acute Category: Medical Code(s): N39.0 - Urinary tract infection, site not specified (7) Sepsis Status: Resolved Qualifiers: Sepsis type: Escherichia coli Sepsis acute organ dysfunction status: with acute organ dysfunction Severe sepsis acute organ dysfunction type: acute renal failure Acute renal failure type: unspecified Severe sepsis shock status: without septic shock Qualified Code(s): A41.51 - Sepsis due to Escherichia coli [E. coli]; R65.20 - Severe sepsis without septic shock; N17.9 - Acute kidney failure, unspecified Category: Medical Code(s): A41.9 - Sepsis, unspecified organism (8) E coli infection Status: Acute Category: Medical Code(s): A49.8 - Other bacterial infections of unspecified site (9) Thrombocytopenia Status: Acute Category: Medical Code(s): D69.6 - Thrombocytopenia, unspecified - Assessment and plan all Dx Assessment and Plan for all problems:: 1. Abdominal ultrasound today 2. Attempt get patient out of bed to chair again today. Continue PT 3. Await labs this morning. Patient's become thrombocytopenic which I suspect may be from underlying liver disease 4. Fluids were changed to D5 normal saline due to mild hyperkalemia yesterday. 5. We will discuss with family patient's prognosis. Creatinin
[2021-05-05 07:34] LABS: Basophils # 0.1 K/mm3 (0-0.2); Basophils % 0.5 % (0.1-2.0); Eosinophils # 0.2 K/mm3 (0.0-0.4); Eosinophils % 0.9 % (0.1-12.0); Hematocrit 42.8 % (37.0-47.0); Hemoglobin 13.2 g/dL (12.2-16.2); Lymphocytes # 1.6 K/mm3 (0.7-4.5); Lymphocytes % 9.9 % (10-50); Mean Corpuscular Hemoglobin 30.2 pg (27.0-31.2); Mean Corpuscular Volume 97.6 fl (81-99); Mean Platelet Volume 9.1 fl (7.4-10.4); Monocytes # 0.6 K/mm3 (0.1-1.0); Monocytes % 3.3 % (1.7-9.3); Neutrophils # 14.2 K/mm3 (1.8-7.8); Neutrophils % 85.4 % (37.0-80.0); Platelet Count 103 K/mm3 (142-424); Red Blood Count 4.38 M/mm3 (4.20-5.40); Red Cell Distribution Width 18.8 % (11.5-17.5); White Blood Count 16.6 K/mm3 (4.8-10.8)
[2021-05-05 07:38] LABS: Anion Gap 11.3 mEq/L (5-15); Blood Urea Nitrogen 67 mg/dl (7-17); Carbon Dioxide 25 mmol/L (22.0-30.0); Chloride 101 mmol/L (98-107); Creatinine Clearance Estimated 17 mL/min (50-200); Estimated Glomerular Filt Rate 16 ml/min (>60); GFR (African American) 19 ML/MIN (>60); Glucose 98 mg/dl (74-100); Potassium 4.3 mmoL/L (3.5-5.1); Sodium 133 mmol/L (136-145)
[2021-05-05 07:39] LABS: Alanine Aminotransferase 68 U/L (12-78); Albumin Level 2.2 g/dl (3.5-5.0); Alkaline Phosphatase 273 U/L (38-126); Aspartate Amino Transferase 73 U/L (14-36); Bilirubin,Direct 0.9 mg/dl (0.0-0.4); Bilirubin,Indirect 0.8 mg/dL (0.0-0.9); Bilirubin,Total 1.7 mg/dl (0.2-1.3); Bilirubin,Unconjugated 0.8 mg/dL (0.0-1.1); Total Protein,Serum 5.4 g/dl (6.3-8.2)
[2021-05-05 07:44] LABS: MANUAL DIFFERENTIAL MANUAL DIFFERENTIAL (MANUAL DIFF)
[2021-05-05 07:55] LABS: Procalcitonin 2.07 ng/mL (0.0-2.0)
[2021-05-05 08:09] LABS: INR 1.52 (0.9-1.1); Prothrombin Time 16.7 seconds (10.1-12.5)
[2021-05-05 08:45] LABS: Lymphocytes % 16 % (10-50); Monocytes % 1 % (2-9); Neutrophils % 83 % (42-76); Platelet Estimate Moderate Decrease; Target Cells 1+; Total Cells Counted 100
[2021-05-05 08:48] VITALS: BP 129/83; PULSE 107; RESP 16; TEMP 36.4; O2SAT 100
[2021-05-05 11:47] VITALS: BP 118/43; PULSE 101; RESP 20; TEMP 36.4; O2SAT 99
--- NOTE | 2021-05-05 13:10 | CT_ITS ---
FINAL REPORT TECHNIQUE: Axial images through the abdomen and pelvis were performed without contrast. This study was performed with techniques to keep radiation doses as low as reasonably achievable, (ALARA). Individualized dose reduction techniques using automated exposure control or adjustment of mA and/or kV according to the patient's size were employed. CLINICAL HISTORY: abdominal pain, ascites, abnormal liver test FINDINGS: Abdomen: The lung bases are clear. There is extensive body wall edema. There is moderate ascites throughout the abdomen. The liver has a heterogeneous appearance. There is an infiltrative low-attenuation process in the lateral segment of the left lobe of the liver and to a lesser degree the right lobe of the liver. The gallbladder is present. The spleen, pancreas, adrenals and kidneys are unremarkable. Pelvis: The urinary bladder is unremarkable. The appendix is not visualized. There is moderate pelvic ascites. There are calcified fibroids in the uterus. There advanced degenerative disc disease in lower lumbar spine with L5 pars defects. A stimulator device is seen posteriorly on the left. IMPRESSION: Markedly abnormal appearance to the liver with and underlying low attenuation infiltrative process. Metastasis cannot be excluded. Infused CT may be of value. Extensive body wall edema. Moderate ascites. Degenerative disc disease with L5 pars defects. Fibroid uterus. Reviewed, Interpreted and Dictated by Virgilio Gallegos MD Transcribed by Cristo Cerda Authenticated by Virgilio Gallegos MD on 05/06/2021 07:45:52 AM [facility]
[2021-05-05 15:20] VITALS: BP 101/65; PULSE 107; RESP 18; TEMP 37; O2SAT 98
--- NOTE | 2021-05-05 17:29 | PC.NURSE ---
Pt is alert and oriented x4. She remains on RA w/O2 sats in the upper 90's. HR has been 100's-110's. She has denied any complaints. She has refused meals, turns and incentive spirometer use. She was encouraged to turn and educated on skin breakdown but still refused. She was encouraged to eat and use IS as well but she didn't want to. Glucose was 129 & 75 on checks. Her maier is to bedside draining clear, dark urine. 300mls out thus far. She had 1 large loose bm today. NH called and updated on patients status.
[2021-05-05 20:00] VITALS: BP 100/58; PULSE 98; RESP 16; TEMP 36.6; O2SAT 92; O2SAT 98
--- NOTE | 2021-05-05 22:04 | PC.NURSE ---
Addendum entered by Lilian Fofana RN 05/06/21 06:16: Finger stick blood glucose at 0530 was 90 Addendum entered by Lilian Fofana RN 05/06/21 04:09: Finger stick blood glucose at 0230 was 122. Original Note: Finger stick blood glucose at 2130 was 47. Stat blood glucose ordered, lab tried to collect specimen x 3 sticks, two RNs x 2 sticks which were unsuccessful. Amp of dextrose pushed per MAR at 2145 and repeat finger stick at 2200 was 147. Patient remained alert and oriented during this time. Will continue to monitor t/o shift.
[2021-05-05 22:08] LABS: POC Glucose,Bedside 147 (70-110)
[2021-05-06] VITALS: BP 100/68; PULSE 100; RESP 16; TEMP 36.4; O2SAT 98
[2021-05-06 04:00] VITALS: BP 104/70; PULSE 99; RESP 16; TEMP 36.5; O2SAT 100
[2021-05-06 04:48] VITALS: BMI 50.3
--- NOTE | 2021-05-06 07:27 | HMH.ACPN2 ---
Internal Medicine - PN: Subj *Date: 05/06/21 *Time: 07:27 Interval history: No acute events over the last 24 hours. Patient apparently passed out when it was attempted to sit her up on the side of the bed yesterday. Patient underwent ultrasound of the abdomen which revealed moderate ascites and cirrhotic changes of the liver. Follow-up CT abdomen and pelvis was performed and no report is available. Patient is becoming increasingly bruised and labs having a difficult time drawing her blood Exam Vital signs and Labs for Last 24 Hours: Temp Pulse Resp BP Pulse Ox 97.7 F 99 H 16 104/70 L 100 05/06/21 04:00 05/06/21 04:00 05/06/21 04:00 05/06/21 04:00 05/06/21 04:00 Laboratory Results - last 24 hr 05/05/21 07:02: Total Bilirubin 1.7 H, Direct Bilirubin 0.9 H, Conjugated Bilirubin 0.0, Indirect Bilirubin 0.8, Unconjugated Bilirubin 0.8, AST 73 H, ALT 68, Alkaline Phosphatase 273 H, Total Protein 5.4 L, Albumin 2.2 L, Procalcitonin 2.07 H 05/05/21 07:02: WBC 16.6 H, RBC 4.38, Hgb 13.2, Hct 42.8, MCV 97.6, MCH 30.2, MCHC 31.0 L, RDW 18.8 H, Plt Count 103 L, MPV 9.1, Neut % (Auto) 85.4 H, Lymph % (Auto) 9.9 L, [place] % (Auto) 3.3, Eos % (Auto) 0.9, Baso % (Auto) 0.5, Neut # (Auto) 14.2 H, Lymph # (Auto) 1.6, [place] # (Auto) 0.6, Eos # (Auto) 0.2, Baso # (Auto) 0.1, Total Counted 100, Neutrophils % (Manual) 83 H, Lymphocytes % (Manual) 16, Monocytes % (Manual) 1 L, Platelet Estimate Moderate decrease, Target Cells 1+ 05/05/21 07:02: Sodium 133 L, Potassium 4.3 D, Chloride 101, Carbon Dioxide 25, Anion Gap 11.3, BUN 67 H, Creatinine 2.90 H, Estimated Creat Clear 17, Estimated GFR 16 L*, Est GFR ( Amer) 19 L*, Glucose 98, Calcium 8.0 L 05/05/21 07:47: PT 16.7 H, INR 1.52 H 05/05/21 22:01: POC Glucose 147 H I & O for Last 24 hours: Intake & Output 05/03/21 05/04/21 05/05/21 05/06/21 11:59 11:59 11:59 11:59 Intake Total 470 / 470 50 / 50 0 / 0 3666 / 3666 Output Total 125 / 125 500 / 500 300 / 300 350 / 350 Balance 345 / 345 -450 / -450 -300 / -300 3316 / 3316 Weight 305 lb 1 oz 305 lb 5.443 oz 310 lb 1.6 oz 313 lb Microbiology Reports for the Last 24 Hours: Microbiology 04/30/21 10:09 Blood Blood Culture - Final NO GROWTH AFTER 5 DAYS 04/30/21 10:09 Blood Blood Culture - Final NO GROWTH AFTER 5 DAYS Narrative: Patient is disheveled and looks tired and weak. Oropharynx is dry. Lungs are clear. Heart rate is mildly tachycardic. Abdomen is soft with epigastric firmness which I believe either represents her ascites or liver. Bowel sounds are present. Kumar catheter remains anchored and overnight patient has produced what appears to be 100 mL of dark urine Assessment and Plan (1) BURTON (acute kidney injury) Status: Acute Category: Medical Code(s): N17.9 - Acute kidney failure, unspecified (2) Multiple organ failure Status: Resolved Category: Medical (3) Hypotension Status: Resolved Qualifiers: Hypotension type: unspecified hypotension type Qualified Code(s): I95.9 - Hypotension, unspecified Category: Medical Code(s): I95.9 - Hypotension, unspecified (4) Left lower lobe pneumonia Status: Resolved Category: Medical Code(s): J18.9 - Pneumonia, unspecified organism (5) Hypoglycemia Status: Acute Category: Medical Code(s): E16.2 - Hypoglycemia, unspecified (6) Urinary tract infection Status: Acute Category: Medical Code(s): N39.0 - Urinary tract infection, site not specified (7) Sepsis Status: Resolved Qualifiers: Sepsis type: Escherichia coli Sepsis acute organ dysfunction status: with acute organ dysfunction Severe sepsis acute organ dysfunction type: acute renal failure Acute renal failure type: unspecified Severe sepsis shock status: without septic shock Qualified Code(s): A41.51 - Sepsis due to Escherichia coli [E. coli]; R65.20 - Severe sepsis without septic shock; N17.9 - Acute ki
[2021-05-06 08:00] VITALS: BP 96/60; PULSE 60; RESP 16; TEMP 36.5; O2SAT 92; O2SAT 96
[2021-05-06 08:59] LABS: Basophils # 0.2 K/mm3 (0-0.2); Basophils % 1.1 % (0.1-2.0); Eosinophils # 0.4 K/mm3 (0.0-0.4); Eosinophils % 1.9 % (0.1-12.0); Hematocrit 41.9 % (37.0-47.0); Hemoglobin 13.1 g/dL (12.2-16.2); Lymphocytes # 1.9 K/mm3 (0.7-4.5); Lymphocytes % 10.1 % (10-50); Mean Corpuscular HGB Conc 31.1 g/dL (31.8-35.4); Mean Corpuscular Hemoglobin 30.6 pg (27.0-31.2); Mean Corpuscular Volume 98.2 fl (81-99); Mean Platelet Volume 10.2 fl (7.4-10.4); Monocytes # 0.6 K/mm3 (0.1-1.0); Monocytes % 3.2 % (1.7-9.3); Neutrophils # 15.4 K/mm3 (1.8-7.8); Neutrophils % 83.7 % (37.0-80.0); Platelet Count 85 K/mm3 (142-424); Red Blood Count 4.27 M/mm3 (4.20-5.40); Red Cell Distribution Width 19.1 % (11.5-17.5); White Blood Count 18.4 K/mm3 (4.8-10.8)
[2021-05-06 09:03] LABS: MANUAL DIFFERENTIAL MANUAL DIFFERENTIAL (MANUAL DIFF)
[2021-05-06 09:11] LABS: Anion Gap 13.8 mEq/L (5-15); Blood Urea Nitrogen 71 mg/dl (7-17); Calcium 8.1 mg/dl (8.4-10.2); Carbon Dioxide 23 mmol/L (22.0-30.0); Chloride 102 mmol/L (98-107); Creatinine Clearance Estimated 19 mL/min (50-200); Estimated Glomerular Filt Rate 19 ml/min (>60); GFR (African American) 23 ML/MIN (>60); Glucose 94 mg/dl (74-100); Potassium 4.8 mmoL/L (3.5-5.1); Sodium 134 mmol/L (136-145)
[2021-05-06 10:41] LABS: Lymphocytes % 17 % (10-50); Monocytes % 1 % (2-9); Neutrophils % 82 % (42-76); Platelet Estimate Marked Decrease; Total Cells Counted 100
[2021-05-06 10:42] LABS: Target Cells 1+
[2021-05-06 11:39] VITALS: BP 151/81; PULSE 122; RESP 17; TEMP 36.4; O2SAT 99
[2021-05-06 12:03] LABS: POC Glucose,Bedside 161 (70-110)
[2021-05-06 15:56] VITALS: BP 130/65; PULSE 100; RESP 19; TEMP 36.3; O2SAT 99
--- NOTE | 2021-05-06 18:51 | PC.NURSE ---
HOSPICE CONSULT THIS SHIFT. NO ACUTE CHANGES NOTED. HAS NOT REQUIRED O2 SUPPORT. PT HAS DISPLAYED POOR APPETITE. FSBS AT 1630 WAS 71. PRN AMP OF D50 ADMIN. Q2TURN THIS SHIFT. MEDICATED WITH PRN ZOFRAN FOR N/V WITH GOOD EFFECTIVENESS.
[2021-05-06 20:00] VITALS: BP 111/56; PULSE 99; RESP 18; TEMP 36.2; O2SAT 99
[2021-05-07] VITALS: BP 136/60; PULSE 106; RESP 18; TEMP 36.6; O2SAT 100
[2021-05-07 04:00] VITALS: BP 106/52; PULSE 105; RESP 18; TEMP 36.4; O2SAT 100
[2021-05-07 05:00] VITALS: BMI 51.2
[2021-05-07 07:10] LABS: Anion Gap 13.6 mEq/L (5-15); Blood Urea Nitrogen 71 mg/dl (7-17); Carbon Dioxide 21 mmol/L (22.0-30.0); Chloride 105 mmol/L (98-107); Creatinine Clearance Estimated 19 mL/min (50-200); Estimated Glomerular Filt Rate 19 ml/min (>60); GFR (African American) 23 ML/MIN (>60); Glucose 106 mg/dl (74-100); Potassium 5.6 mmoL/L (3.5-5.1); Sodium 134 mmol/L (136-145)
[2021-05-07 07:17] LABS: Basophils # 0.1 K/mm3 (0-0.2); Basophils % 0.7 % (0.1-2.0); Eosinophils # 0.2 K/mm3 (0.0-0.4); Eosinophils % 1.1 % (0.1-12.0); Hematocrit 43.3 % (37.0-47.0); Lymphocytes # 1.7 K/mm3 (0.7-4.5); Mean Corpuscular HGB Conc 30.1 g/dL (31.8-35.4); Mean Corpuscular Hemoglobin 30.2 pg (27.0-31.2); Mean Corpuscular Volume 100.2 fl (81-99); Mean Platelet Volume 10.8 fl (7.4-10.4); Monocytes # 0.6 K/mm3 (0.1-1.0); Monocytes % 3.3 % (1.7-9.3); Neutrophils % 85.9 % (37.0-80.0); Platelet Count 83 K/mm3 (142-424); Red Blood Count 4.32 M/mm3 (4.20-5.40); Red Cell Distribution Width 19.3 % (11.5-17.5); White Blood Count 18.7 K/mm3 (4.8-10.8)
[2021-05-07 07:21] LABS: MANUAL DIFFERENTIAL MANUAL DIFFERENTIAL (MANUAL DIFF)
--- NOTE | 2021-05-07 07:57 | HMH.DCSUM ---
General - General Admission date:: 04/30/21 Discharge date: 05/07/21 HPI HPI: 70-year-old female sent to the emergency department from the senior care where she had been rehabilitating due to profound weakness and hypotension. Patient was found to be hypotensive here with new acute kidney injury and hypoglycemia. Patient was confused in the emergency department. Additional findings included suspected left lower lobe pneumonia. Patient was admitted per pneumonia protocol, placed on Rocephin and azithromycin, and started on IV fluids to maintain blood pressure. Patient was in this facility approximately 1 week ago for similar symptoms with mild or acute kidney injury. [facility] Once patient was at the nursing facility her appetite markedly decreased and patient had implied that she was ready to . She did admit to depression and was started on antidepressant the day before return to this facility. Patient continues to have poor appetite here. This morning she is very confused and has had significant alteration in her cognition compared to the last time I saw the patient 48 hours ago. Patient's not speaking in full sentences she just blurts out 1 or 2 words. Hospital Course Hospital Course: Patient was admitted with suspected sepsis and multiple organ system failure. She was started on Rocephin and azithromycin to treat suspected pneumonia as her source of infection. Patient also had worsened acute kidney injury with creatinine of 3-1/2 on presentation and peaking at 3.9. Patient was initially started on normal saline via IV however hypoglycemia developed and fluids were changed to D5 half-normal saline with potassium chloride. Discharge summary will be outlined by diagnosis: 1. Acute kidney injury-patient's creatinine was greater than 3 on admission and peaked at 3.9. She was treated with D5 half-normal saline with potassium chloride. Creatinine ultimately decreased to 2.5 approximately 1 week later. However patient remained severely oliguric with 24-hour urine output totals remaining under 300 mL of urine for the last 3 days of hospitalization. Patient remained hypotensive intermittently during hospitalization despite large volume of fluids of which she was third spacing due to newly detected cirrhosis. Ultimately patient's prognosis was deemed poor and she was not believed to recover from this illness. This was explained to the patient and her family. Hospice was consulted due to the patient's poor prognosis. Patient was discharged to [facility] for end-of-life care. 2. Cirrhosis of the liver. This was newly diagnosed. Patient had poor appetite during hospitalization and developed epigastric pain and discomfort with palpable firmness. Initial ultrasound showed ascites and an irregular appearance to the liver. Follow-up CT scan confirmed cirrhosis of the liver or possible damage from metastatic disease although patient has no history of cancer. She has not had colonoscopy or cancer work-up. Patient was in no condition for this due to her declining health. Cirrhosis of the liver contributed to patient's edema as well as her overall poor prognosis. 3. Urinary tract infection. Urinalysis was performed during hospitalization and was abnormal. Urine culture grew E. coli sensitive to Rocephin which the patient remained on during hospitalization 4. Suspected pneumonia. There is suspected pneumonia on admission. Patient never had symptoms consistent with lobar pneumonia of fever, chills, cough, shortness of breath. Nor did patient ever have an oxygen requirement during hospitalization. Once patient's source of infection was identified as urinary tract infection her azithromycin was discontinued 5. Sepsis/multiple organ system failure. Patient had elevated lactate and worsening acute kidney injury on admission suggestive of multiple organ system failure and was treated as
[2021-05-07 08:00] VITALS: BP 120/82; PULSE 107; RESP 20; TEMP 37.1; O2SAT 100; O2SAT 96
[2021-05-07 08:26] LABS: Lymphocytes % 11 % (10-50); Monocytes % 6 % (2-9); Neutrophils % 83 % (42-76); Platelet Estimate Marked Decrease; Total Cells Counted 100
[2021-05-07 08:27] LABS: Target Cells 1+
[2021-05-07 08:28] LABS: Burr Cells 1+; Macrocytosis 1+
--- NOTE | 2021-05-07 09:20 | PC.NURSE ---
report give to Aimee frey
[2021-05-07 09:55] LABS: Coronavirus 19, PCR Not Detected (NotDetected); Influenza A, PCR Not Detected (NotDetected); Influenza B, PCR Not Detected (NotDetected)
== END 2021-05-07 11:45 | DRG 871 ==
LOC: ER 10:53 → 2ND 18:47
PROVIDERS: Internal Medicine Adolescent Medicine; Admitting Provider Family Medicine; Emergency Provider Student in an Organized Health Care Education/Training Program; PCP Nurse Practitioner Family; Visit Provider Family Medicine
DX: A41.51 Sepsis due to Escherichia coli [E. coli] (principal); R65.21 Severe sepsis with septic shock; N17.9 Acute kidney failure, unspecified; Z68.43 Body mass index [BMI] 50.0-59.9, adult; E86.0 Dehydration; J44.9 Chronic obstructive pulmonary disease, unspecified; Z20.822 Contact with and (suspected) exposure to COVID-19; E16.2 Hypoglycemia, unspecified; I10 Essential (primary) hypertension; E66.01 Morbid (severe) obesity due to excess calories; K74.60 Unspecified cirrhosis of liver; E87.5 Hyperkalemia; D69.6 Thrombocytopenia, unspecified; F03.90 Unspecified dementia, unspecified severity, without behavioral disturbance, psychotic disturbance, mood disturbance, and anxiety
CPT/HCPCS: 36415; 71045; 74176; 76700; 80048; 80053; 80076; 81001; 82140; 82947; 82962; 83605; 84145; 84484; 85007; 85025; 85610; 87040; 87070; 87086; 87088; 87186; 87205; 93005; 93976; 96365; 97162; 97530; 99284; C9803; J0456; J0696; J2405; J2543; U0003; U0005